=== PATIENT | female | born 1945 | race Caucasian/White ===

== ENCOUNTER 2018-03-20 10:39 | Inpatient (IN) ==
[2018-03-23 08:44] VITALS: RESP 16
[2018-03-23 13:53] VITALS: BP 109/70; PULSE 69; TEMP 98.2; O2SAT 92
== END 2018-03-23 16:25 | disposition home health service (06) ==
LOC: PHEDA 10:39 → PHED 10:39 → PH3 16:04
PROVIDERS: ADMIT Internal Medicine; ATTEND Internal Medicine

== ENCOUNTER 2018-05-18 12:51 | Observation (INO) ==
--- NOTE | 2018-05-18 13:50 | ED ---
HPI General Chief Complaint: Respiratory Symptoms Stated Complaint: physent/ medical complaint Time Seen by Provider: 05/18/18 13:16 Source: patient Mode of arrival: ambulatory Limitations: no limitations History of Present Illness 73-year-old female with known pulmonary embolisms presents to the emergency department for evaluation at the recommendation of her para professional, Dr. Crawford after performing a CT pulmonary angiogram today. Patient states that she was diagnosed with pulmonary embolisms in March of this year and has had workup to include hematology consults. Patient says 2 nights ago she coughed up blood- streaked sputum, notified her para professional who pushed her CT up to today. Patient states compliance with her Coumadin. She states that her INR was 1.9 on Monday and her medication was changed to 2 mg 4 times a week and 1 mg 3 times a week. She continues to feel shortness of breath with exertion but this is been persistent for 3 months. She denies chest pain, back pain, leg pain, abdominal pain. Says she is on oxygen at the recommendation of Dr. Dupree for an echocardiogram was performed while in the hospital last year. Says that she had "right heart strain" at that time. Patient does not currently follow a primary care physician but previously follow Dr. Darling. Complaint: shortness of breath and cough Onset (ago): month(s) Context: other (known pulmonary embolism) Severity: mild Consistency/Duration: constant Relieving factors: nothing Exacerbating factors: exertion Known history of: COPD Treatment prior to arrival: oxygen Related Data Home oxygen amount: 2 liters Home Medications Medication Instructions Recorded Confirmed allopurinol 300 mg PO DAILY 03/20/18 03/20/18 aspirin 81 mg PO DAILY 03/20/18 03/20/18 doxycycline monohydrate 4 mg/kg PO DAILY 03/20/18 03/20/18 folic acid 1 mg PO DAILY 03/20/18 03/20/18 levothyroxine 112 mcg PO DAILY 03/20/18 03/20/18 Allergies Allergy/AdvReac Type Severity Reaction Status Date / Time diatrizoate meglumine Allergy Mild Hives Verified 05/18/18 12:56 gadobenic acid Allergy Mild Hives Verified 05/18/18 12:56 gadodiamide Allergy Mild Hives Verified 05/18/18 12:56 gadoteridol Allergy Mild Hives Verified 05/18/18 12:56 iodixanol Allergy Mild Hives Verified 05/18/18 12:56 iohexol Allergy Mild Hives Verified 05/18/18 12:56 Sulfa (Sulfonamide Allergy Mild Hives Verified 05/18/18 12:56 Antibiotics) Review of Systems ROS: all other systems reviewed are negative [facility] Medical History Medical History DVT (deep venous thrombosis) (Acute) History of hysterectomy (Acute) Portal vein thrombosis (Acute) Rosacea (Acute) Spleen absent (Acute) Thyroid activity decreased (Acute) Surgical History Surgical History Hx laparoscopic cholecystectomy (Acute) Hx of splenectomy (Acute) Family History Family History Other COPD (chronic obstructive pulmonary disease) Suicide Social History Social History Substance History: No History of Abuse Second Hand Smoke Exposure: No Smoking Status: Never smoker Tobacco Type: Cigarettes How Often Do You Have a Drink Containing Alcohol: 4 or more times a week Recent Travel in [facility] within the Last 8 Weeks: No Recent Out of Country Travel within the Last 8 Weeks: No Exam Narrative Exam Narrative: GENERAL: WD, WN in NAD SKIN: Focused skin assessment warm/dry. HEAD: Atraumatic. Normocephalic. EYES: Pupils equal and round. No scleral icterus. No injection or drainage. ENT: No nasal bleeding or discharge. Mucous membranes pink and moist. NECK: Trachea midline. No JVD. CARDIOVASCULAR: Regular rate and rhythm. No murmur appreciated. RESPIRATORY: No accessory muscle use. Clear to auscultation. Breath sounds equal bilaterally. GASTROINTESTINAL: Abdomen soft, non-tender, nondistended. Hepatic and splenic margins not palpable. No CVAT MUSCULOSKELETAL: No obvious deformities. No clubbing. No cyanosis. No edema. No TTP to calves NEUROLOGICAL: Awake and alert. No obvious cranial nerve deficits. Motor grossly within normal limits. Normal speech. PSYCHIATRIC: Appropriate mood and affect; insight and judgment normal. Course Initial Documented Vital Signs Temperature 97.6 F 05/18/18 12:56 Pulse Rate 79 05/18/18 12:56 Respiratory Rate 23 05/18/18 12:56 Blood Pressure 127/69 05/18/18 12:56 Pulse Oximetry 97 05/18/18 12:56 Last Documented Vital Signs Temperature 97.6 F 05/18/18 12:56 Pulse Rate 80 05/18/18 13:00 Respiratory Rate 17 05/18/18 13:00 Blood Pressure 137/58 L 05/18/18 13:00 Pulse Oximetry 98 05/18/18 13:00 Medical Decision Making MDM Narrative Medical decision making narrative: 73-year-old female presents to the emergency department at the recommendation of her para professional, Dr. Crawford after an imaging study that was performed today. Vital signs stable. SaO2 >95% RA at rest. EKG Sinus rhythm rate [address] elevation. The imaging study was found [facility] and stated: "1. Positive for pulmonary embolism with extensive thrombus in both lower lobes and scattered thrombi in the upper lobes. 2. Mild right basilar atelectasis. 3. COPD." We will obtain labs and then call Dr. Crawford for further guidance who is on-call today. Labs are stable. INR 2.1 therapeutic. WBC stable at 13.7, previously 12.7 and 13.9 in March. I spoke with Dr. Crawford who recommended admission as he would like observation for the patient. Because her initial test was a perfusion scan, there is uncertainty if the hemoptysis is an indication for worsening PEs compared to today's CTA. Also, he said he would place the hematology consult. I spoke with Dr. Ko who accepted this patient. Medical Screen Exam Complete: Yes Emergency Medical Condition: Yes Differential Diagnosis Differential Diagnosis: Pulmonary embolisms, pulmonary infarct, hemoptysis, COPD Medical Records Medical records reviewed: Yes I reviewed the patient's medical records. Patient presented March 20, 2018 to the emergency department and was diagnosed with pulmonary embolism. She has had a consult with Dr. Crawford, with pulmonology and hematology with Dr. Ulloa. She was started on coumadin and states compliance with therapy. Last note from Dr. Ulloa was 04/12/2018 as a follow up. Advised lifelong anticoagulant therapy d/t unprovoked nature of PEs. Lab Data Result diagrams: 05/18/18 13:54 05/18/18 13:54 Lab Results 05/18/18 05/18/18 05/18/18 Range/Units 13:54 13:54 13:54 WBC 13.7 H (4.0-11.0) th/mm3 RBC 3.99 L (4.00-5.30) mil/mm3 Hgb 12.7 (11.6-15.3) gm/dL Hct 38.4 (35.0-46.0) % MCV 96.2 (80.0-100.0) fL MCH 31.7 (27.0-34.0) pg MCHC 33.0 (32.0-36.0) % RDW 17.0 (11.6-17.2) % Plt Count 969 H (150-450) th/mm3 MPV 8.8 (7.0-11.0) fL Neut % (Auto) 89.3 H (16.0-70.0) % Lymph % (Auto) 9.4 (9.0-44.0) % [place] % (Auto) 1.1 (0.0-8.0) % Eos % (Auto) 0.0 (0.0-4.0) % Baso % (Auto) 0.2 (0.0-2.0) % Neut # (Auto) 12.2 H (1.8-7.7) th/mm3 Lymph # (Auto) 1.3 (1.0-4.8) th/mm3 [place] # (Auto) 0.1 (0.0-0.9) th/mm3 Eos # (Auto) 0.0 (0.0-0.4) th/mm3 Baso # (Auto) 0.0 (0.0-0.2) th/mm3 WBC Differential . Differential Comment Auto diff final PT 21.0 H (9.8-11.6) sec INR 2.1 Ratio APTT 35.2 H (24.3-30.1) sec Sodium 141 (136-145) meq/L Potassium 3.6 (3.5-5.1) meq/L Chloride 104 (98-107) meq/L Carbon Dioxide 26.3 (21.0-32.0) meq/L Anion Gap 11 (5-15) meq/L BUN 21 H (7-18) mg/dL Creatinine 0.75 (0.50-1.00) mg/dL Estimated GFR 76 L (>89) mL/min Random Glucose 154 H (74-106) mg/dL Calcium 9.4 (8.5-10.1) mg/dL Total Bilirubin 0.3 (0.2-1.0) mg/dL AST 33 (15-37) U/L ALT 29 (10-53) U/L Alkaline Phosphatase 141 H (45-117) U/L Total Protein 7.5 (6.4-8.2) g/dL Albumin 3.3 L (3.4-5.0) g/dL Discharge Plan Discharge Disposition Patient Disposition: 30 Still Patient Discharge Condition Condition: Stable Discharge Details Diagnosis: Pulmonary embolism, Hemoptysis Physicians Team ED Provider: Ramila Nix ED Midlevel Provider: Lore Weeks Primary Care Provider: Edilberto Darling Attending Provider: Maximiliano Ko Other Providers: Mamta Ulola ; Denis Crawford Discharge Interventions Interventions: Vital Signs Last Done: 05/18/18 13:00 Status ED Status: Admitted Observation Patient
[2018-05-18 14:17] LABS: Baso % (Auto) 0.2 % (0.0-2.0); Hematocrit 38.4 % (35.0-46.0); Hemoglobin 12.7 gm/dL (11.6-15.3); Lymph # (Auto) 1.3 th/mm3 (1.0-4.8); Lymph % (Auto) 9.4 % (9.0-44.0); Mean Corpuscular Hemoglobin 31.7 pg (27.0-34.0); Mean Corpuscular Volume 96.2 fL (80.0-100.0); Mean Platelet Volume 8.8 fL (7.0-11.0); Mono # (Auto) 0.1 th/mm3 (0.0-0.9); Mono % (Auto) 1.1 % (0.0-8.0); Neut # (Auto) 12.2 th/mm3 (1.8-7.7); Neut % (Auto) 89.3 % (16.0-70.0); Platelet Count 969 th/mm3 (150-450); Red Blood Count 3.99 mil/mm3 (4.00-5.30); White Blood Count 13.7 th/mm3 (4.0-11.0)
[2018-05-18 14:27] LABS: Activated Partial Thrombo Time 35.2 sec (24.3-30.1); INR 2.1 Ratio
[2018-05-18 14:47] LABS: Alanine Aminotransferase 29 U/L (10-53); Albumin 3.3 g/dL (3.4-5.0); Anion Gap 11 meq/L (5-15); Aspartate Aminotransferase 33 U/L (15-37); Blood Urea Nitrogen 21 mg/dL (7-18); Calcium 9.4 mg/dL (8.5-10.1); Carbon Dioxide 26.3 meq/L (21.0-32.0); Chloride 104 meq/L (98-107); Glomerular Filtration Rate 76 mL/min (>89); Glucose,Random 154 mg/dL (74-106); Potassium 3.6 meq/L (3.5-5.1); Sodium 141 meq/L (136-145)
[2018-05-18 14:49] LABS: Alkaline Phosphatase 141 U/L (45-117); Total Protein 7.5 g/dL (6.4-8.2)
--- NOTE | 2018-05-18 15:05 | MB ---
cc: Ric Crawford MD DATE: 05/18/2018 HISTORY OF PRESENT ILLNESS: Ms. Rodriguez is a 72-year-old white female who I saw back in 03/2018 when she presented with chest discomfort and shortness of breath. She had a prior history of portal vein thrombosis and has been anticoagulated for a period of time, but was on no anticoagulation at the time of her presentation. Perfusion lung scan during that admission revealed pulmonary embolism on the right. She was anticoagulated and discharged on warfarin. Dr. Mamta Ulloa has seen her back in followup regarding anticoagulation and further evaluation of possible thrombophilia. She called me yesterday and had an episode of blood-streaked sputum, so I sent her today for a followup CT scan. I was called at the office and told she had a bilateral thromboembolic disease, so I sent her directly to the emergency room. I just examined her, she is awake, alert, comfortable with a sat of 97% on room air. She has had no recurrence of the blood and she is not experiencing shortness of breath or chest pain. INR today is 2.1. She tells me earlier this week it was 1.9 and she had a minor adjustment made in her warfarin dose. She is not lightheaded. She is having no chest discomfort. She is not short of breath. PAST MEDICAL HISTORY: Hypothyroidism, melanoma, previous splenectomy, cholecystectomy and hysterectomy, portal vein thrombosis as noted above. SOCIAL HISTORY: Rare alcohol use. Former smoker, but quit years ago. ALLERGIES: MULTIPLE, LISTED IN THE EMR. CURRENT MEDICATIONS: Listed in the EMR. HOME MEDICATIONS: Included thyroid replacement and folic acid. REVIEW OF SYSTEMS: No GI symptoms. No swelling in her legs. No orthopnea or PND. PHYSICAL EXAMINATION: GENERAL: Awake, alert, is in no distress, has had no recurrent hemoptysis. VITAL SIGNS: Patient is afebrile, pulse is 80, respirations are 16-18, blood pressure is 130/60, room air saturations 97%. NECK: Veins are flat, no adenopathy in the neck or supraclavicular region. CHEST: Completely clear. Regular rate and rhythm. No harsh murmur. ABDOMEN: Soft. EXTREMITIES: No peripheral edema or calf tenderness. LABORATORY DATA: Currently available INR is 2.1. Hemoglobin 12.7, white count 13,000, platelets 969,000, that had previously been noted as well. DISCUSSION: Ms. Rodriguez presents with a single episode of rather scant blood. She had had a minor cough prior to that, may simply have a mild bronchitis. With the elevation in white count I am going to continue her on amoxicillin, which I started her on yesterday and monitor her here in the hospital for at least the next 24 hours. She has a distinctly abnormal CT of the thorax, but unfortunately we do not have an old one for comparison, we only have the previous perfusion scan, which is difficult to compare head to head. I think it is a little unlikely that she has had recurrent thromboembolism in light of the stability clinically. Essentially, her only symptom was a cough with a little bit of blood-streaked sputum. I have suggested that we keep her overnight to monitor her carefully, followup her INR again tomorrow. Continue the amoxicillin. I will also ask hematology to be aware that she is in the hospital and see her with any further recommendations they would have. Further diagnostic and/or therapeutic intervention will depend on her ongoing clinical course. R. MD SUZE Garibay/osei , 02:39 PM , 02:49 PM
[2018-05-18] MEDS ORDERED: Acetaminophen 325 MG Tablet PO PRN (15:13)
[2018-05-18] MEDS ORDERED: Bisacodyl 10 MG Supp RECTAL PRN (15:13)
--- NOTE | 2018-05-18 15:21 | P.HP ---
History of Present Illness Primary Care Physician: Edilberto Darling MD Chief Complaint: Shortness of breath History of Present Illness: This is a pleasant 73 y/o Female with known pulmonary embolisms presents to the emergency department for evaluation at the recommendation of her treer, Dr. Crawford after performing a CT pulmonary angiogram today. Patient states that she was diagnosed with pulmonary embolisms in March of this year and has had workup to include hematology consults. Patient says 2 nights ago she coughed up blood-streaked sputum, notified her treer who pushed her CT up to today. Patient states compliance with her Coumadin. She states that her INR was 1.9 on Monday and her medication was changed to 2 mg 4 times a week and 1 mg 3 times a week. She continues to feel shortness of breath with exertion but this is been persistent for 3 months. She denies chest pain, back pain, leg pain, abdominal pain. Says she is on oxygen at the recommendation of Dr. Dupree for an echocardiogram was performed while in the hospital last year. Says that she had "right heart strain" at that time. Patient does not currently follow a primary care physician but previously follow Dr. Darling. Seen in Emergency room stable having echocardiogram ordered by Doctor Denis Crawford. asked for clinical nurse specialist consult. her INR 2.1 therapeutic. Review of Systems All other systems reviewed negative except as stated in HPI PMFSH - History History Provided By: Patient - Medical History Medical History: Medical History (Last Reviewed 05/18/18 @ 13:48 by Noni Velasco RN) DVT (deep venous thrombosis) History of hysterectomy Portal vein thrombosis Rosacea Spleen absent Thyroid activity decreased - Surgical History Surgical History: Surgical History (Last Reviewed 05/18/18 @ 13:48 by Noni Velasco RN) Hx laparoscopic cholecystectomy Hx of splenectomy - Family History Family History: Family History (Last Updated 03/20/18 @ 15:51 by Lidia Rivas MD) Other COPD (chronic obstructive pulmonary disease) Suicide - Tobacco History Second Hand Smoke Exposure: No Smoking Status: Never smoker Tobacco Type: Cigarettes - Alcohol History How Often Do You Have a Drink Containing Alcohol: 4 or more times a week - Substance Use History Substance History: No History of Abuse - Travel History Recent Travel in the [place] Within the Last 8 Weeks: No Recent Travel Out of the Country Within the Last 8 Weeks: No - Immunization History Tetanus Immunization: <5 Years Medications and Allergies Active Medications: Active Medications Amoxicillin (Amoxil) 500 mg PO TID [place] Allergies Allergy/AdvReac Type Severity Reaction Status Date / Time diatrizoate meglumine Allergy Mild Hives Verified 05/18/18 12:56 gadobenic acid Allergy Mild Hives Verified 05/18/18 12:56 gadodiamide Allergy Mild Hives Verified 05/18/18 12:56 gadoteridol Allergy Mild Hives Verified 05/18/18 12:56 iodixanol Allergy Mild Hives Verified 05/18/18 12:56 iohexol Allergy Mild Hives Verified 05/18/18 12:56 Sulfa (Sulfonamide Allergy Mild Hives Verified 05/18/18 12:56 Antibiotics) Home Medications Medication Instructions Recorded Confirmed Type allopurinol 300 mg PO DAILY 03/20/18 05/18/18 History doxycycline monohydrate 1 tab PO DAILY 03/20/18 05/18/18 History folic acid 1 mg PO DAILY 03/20/18 05/18/18 History levothyroxine 112 mcg PO DAILY 03/20/18 05/18/18 History amoxicillin 500 mg PO TID 05/18/18 05/18/18 History warfarin 1 mg PO 3XW 05/18/18 05/18/18 History warfarin 2 mg PO 4XW 05/18/18 05/18/18 History Exam Vital signs: Vital Signs 05/18/18 12:56 05/18/18 13:00 Temperature 97.6 F Pulse Rate 79 80 Respiratory Rate 23 17 Blood Pressure 127/69 137/58 L Pulse Oximetry 97 98 Intake & Output 05/17/18 05/18/18 05/18/18 18:59 06:59 18:59 Weight 43.998 kg Narrative: GENERAL: Well developed, cachectic patient in no acute distress. SKIN: Focused skin assessment warm/dry. HEAD: Atraumatic. Normocephalic. EYES: Pupils equal and round. No scleral icterus. No injection or drainage. ENT: No nasal bleeding or discharge. Mucous membranes pink and moist. NECK: Trachea midline. No JVD. CARDIOVASCULAR: Regular rate and rhythm. No murmur appreciated. RESPIRATORY: Decreased breath sounds, no wheezing or crackles. GASTROINTESTINAL: Abdomen soft, non-tender, nondistended. Hepatic and splenic margins not palpable. No CVAT MUSCULOSKELETAL: No obvious deformities. No clubbing. No cyanosis. No edema. No TTP to calves NEUROLOGICAL: Awake and alert. No obvious cranial nerve deficits. Motor grossly within normal limits. Normal speech. PSYCHIATRIC: Appropriate mood and affect; insight and judgment normal. Results - Labs CBC & Chem 7: 05/18/18 13:54 05/18/18 13:54 Labs: Laboratory Results - last 24 hr 05/18/18 05/18/18 05/18/18 13:54 13:54 13:54 WBC 13.7 H RBC 3.99 L Hgb 12.7 Hct 38.4 MCV 96.2 MCH 31.7 MCHC 33.0 RDW 17.0 Plt Count 969 H MPV 8.8 Neut % (Auto) 89.3 H Lymph % (Auto) 9.4 [place] % (Auto) 1.1 Eos % (Auto) 0.0 Baso % (Auto) 0.2 Neut # (Auto) 12.2 H Lymph # (Auto) 1.3 [place] # (Auto) 0.1 Eos # (Auto) 0.0 Baso # (Auto) 0.0 WBC Differential . Differential Comment Auto diff final PT 21.0 H INR 2.1 APTT 35.2 H Sodium 141 Potassium 3.6 Chloride 104 Carbon Dioxide 26.3 Anion Gap 11 BUN 21 H Creatinine 0.75 Estimated GFR 76 L Random Glucose 154 H Calcium 9.4 Total Bilirubin 0.3 AST 33 ALT 29 Alkaline Phosphatase 141 H Total Protein 7.5 Albumin 3.3 L - Imaging CTA taken today "1. Positive for pulmonary embolism with extensive thrombus in both lower lobes and scattered thrombi in the upper lobes. 2. Mild right basilar atelectasis. 3. COPD." Caprini VTE Risk Assessment Caprini VTE Risk Assessment: Moderate/High Risk (score >= 2) Caprini Risk Assessment Model: Point Value = 1 Point Value = 2 Point Value = 3 Point Value = 5 Age 41-60 Minor surgery BMI > 25 kg/m2 Swollen legs Varicose veins or History of unexplained or recurrent spontaneous Oral contraceptives or hormone replacement Sepsis (< 1 month) Serious lung disease, including pneumonia (< 1 month) Abnormal pulmonary function Acute myocardial infarction Congestive heart failure (< 1 month) History of inflammatory bowel disease Medical patient at bed rest Age 61-74 Arthroscopic surgery Major open surgery (> 45 min) Laparoscopic surgery (> 45 min) Malignancy Confined to bed (> 72 hours) Immobilizing plaster cast Central venous access Age >= 75 History of VTE Family history of VTE Factor V Leiden Prothrombin [id number] Lupus anticoagulant Anticardiolipin antibodies Elevated serum homocysteine Heparin-induced thrombocytopenia Other congenital or acquired thrombophilia Stroke (< 1 month) Elective arthroplasty Hip, pelvis, or leg fracture Acute spinal cord injury (< 1 month) Prophylaxis Regimen: Total Risk Factor Score Risk Level Prophylaxis Regimen 0-1 Low Early ambulation 2 Moderate Order ONE of the following: *Sequential Compression Device (SCD) *Heparin 5000 units SQ BID 3-4 Higher Order ONE of the following medications: *Heparin 5000 units SQ TID *Enoxaparin/Lovenox 40 mg SQ daily (WT < 150 kg, CrCl > 30 mL/min) *Enoxaparin/Lovenox 30 mg SQ daily (WT < 150 kg, CrCl > 10-29 mL/min) *Enoxaparin/Lovenox 30 mg SQ BID (WT < 150 kg, CrCl > 30 mL/min) AND/OR *Sequential Compression Device (SCD) 5 or more Highest Order ONE of the following medications: *Heparin 5000 units SQ TID (Preferred with Epidurals) *Enoxaparin/Lovenox 40 mg SQ daily (WT < 150 kg, CrCl > 30 mL/min) *Enoxaparin/Lovenox 30 mg SQ daily (WT < 150 kg, CrCl > 10-29 mL/min) *Enoxaparin/Lovenox 30 mg SQ BID (WT < 150 kg, CrCl > 30 mL/min) AND *Sequential Compression Device (SCD) Assessment and Plan - Plan 1. Acute Respiratory Failure secondary to Pulmonary emboli sent by her Primary clinical training specialist doctor Crawford after CTA taken today "1. Positive for pulmonary embolism with extensive thrombus in both lower lobes and scattered thrombi in the upper lobes. 2. Mild right basilar atelectasis. 3. COPD." Doctor Crawford recommended admission and Hematology consult, she is followed by Doctor Ulloa Hematology and as per patient very compliant with Coumadin. at this time having Echocardiogram ordered by doctor Crawford, consulted clinical nurse specialist. 2. COPD continue Bronchodilator, Mucolytic and incentive spirometry. 3. Chronic Pulmonary failure on chronic Oxygen 2 L/min. continue Oxygen as needed. 4. Hypothyroidism to continue Hormonal therapy 5. Gout by history continue Allopurinol 6. DVT by History. DVT prophylaxis on Warfarin at this time INR 2.1 therapeutic. Code Status: full code. Discussed Condition With: Patient, floor technician and ER physician Discharge Planning: once cleared by specialists.
--- NOTE | 2018-05-18 17:13 | ECHRPT ---
Indication: CP, PULM EMBOLI, PULM HYPTN CONCLUSIONS The left ventricular systolic function is normal with an estimated ejection fraction in the range of 55-60%. Normal right ventricular size and systolic function. Left to right atrial shunt, most likely a PFO, is demonstrated by color flow Doppler interrogation. Mild mitral valve regurgitation. There is mild tricuspid valve regurgitation. The estimated pulmonary arterial pressure is 48.2 mmHg. BP: / HR: Rhythm: Sinus MEASUREMENTS (Male / Female) Normal Values Technical Quality:Fair 2D ECHO LV Diastolic Diameter PLAX 4.4 cm 4.2 - 5.9 / 3.9 - 5.3 cm LV Systolic Diameter PLAX 3.1 cm IVS Diastolic Thickness 0.7 cm 0.6 - 1.0 / 0.6 - 0.9 cm LVPW Diastolic Thickness 0.7 cm 0.6 - 1.0 / 0.6 - 0.9 cm LV Relative Wall Thickness 0.3 RV Internal Dim ED PLAX 2.6 cm LVOT Diameter 1.7 cm Aortic Root Diameter 2.9 cm LA Systolic Diameter LX 3.2 cm 3.0 - 4.0 / 2.7 - 3.8 cm M-MODE AV Cusp Separation MM 1.8 cm DOPPLER AV Peak Velocity 127.0 cm/s AV Peak Gradient 6.5 mmHg AV Mean Gradient 3.0 mmHg AV Velocity Time Integral 25.9 cm LVOT Peak Velocity 111.0 cm/s LVOT Peak Gradient 4.9 mmHg LVOT Velocity Time Integral 24.6 cm AV Area Cont Eq vti 2.2 cm AV Area Cont Eq pk 2.0 cm Mitral E Point Velocity 61.7 cm/s Mitral A Point Velocity 39.3 cm/s Mitral E to A Ratio 1.6 TV Peak Velocity 305.0 cm/s TR Peak Velocity 309.0 cm/s TR Peak Gradient 38.2 mmHg Right Atrial Pressure 10.0 mmHg Pulmonary Artery Systolic Pressu 48.2 mmHg Right Ventricular Systolic Press 48.2 mmHg PV Peak Velocity 57.9 cm/s PV Peak Gradient 1.3 mmHg FINDINGS LEFT VENTRICLE Normal left ventricular size. Wall thickness is normal. The left ventricular systolic function is normal with an estimated ejection fraction in the range of 55-60%. No regional wall motion abnormalities are present. RIGHT VENTRICLE Normal right ventricular size and systolic function. LEFT ATRIUM The left atrial size is normal. RIGHT ATRIUM The right atrial size is normal. ATRIAL SEPTUM Left to right atrial shunt, most likely a PFO, is demonstrated by color flow Doppler interrogation. AORTA The aortic root and proximal ascending aorta are normal in size on limited imaging. MITRAL VALVE Structurally normal mitral valve. Mild mitral valve regurgitation. No mitral valve stenosis. AORTIC VALVE Trileaflet aortic valve. No aortic valve stenosis or regurgitation. TRICUSPID VALVE Structurally normal tricuspid valve. There is mild tricuspid valve regurgitation. The estimated pulmonary arterial pressure is 48.2 mmHg. PULMONARY VALVE The pulmonary valve is not well visualized. Trivial pulmonary valve regurgitation. VESSELS The inferior vena cava is normal in size. PERICARDIUM No pericardial effusion. Mario Alberto Dela Cruz DO (Electronically Signed) Final Date:18 May 2018 17:12
[2018-05-18] MEDS: Sod Chloride 0.9% Inj 1,000 ML IV.CONT SCH (19:48)
[2018-05-18] MEDS: guaiFENesin 600 MG ER Tablet PO SCH (20:53)
--- NOTE | 2018-05-19 03:39 | MB ---
cc: Mamta Ulloa MD DATE: 05/18/2018 CHIEF COMPLAINT: 1. Pulmonary embolism. 2. Chronic anticoagulation with warfarin. HISTORY OF PRESENT ILLNESS: Ms. Rodriguez is a 73-year-old lady with a history of unprovoked pulmonary embolism in 03/2018. Past history of unprovoked portal vein thrombosis many years ago, who was admitted to the hospital by her design and sales consultant, Dr. Crawford, for observation for venous thromboembolism and hemoptysis. Ms. Rodriguez was hospitalized in 03/2018 with progressively worsening shortness of breath and underwent a V/Q scan at that time as she is ALLERGIC TO CONTRAST DYE and was unable to receive the 13 hours worth of prep prior to receiving IV contrast. At that time, the V/Q scan showed high probability of pulmonary embolism. She was then placed on outpatient warfarin therapy, unable to pursue DOAC therapy due to prohibitive cost. She underwent hypercoagulable workup while inpatient, which was negative. At that time, she was also found to have leukocytosis and thrombocytosis. BCR-ABL and JAK2 were negative. 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 She called Dr. Crawford and told him that she had had one episode of coin-sized hemoptysis. She still continues to have shortness of breath with exertion that has been present for several months; however, she reports that this is overall improving since her hospitalization in March. She underwent a CT scan, which showed pulmonary embolism with extensive thrombus in both lower lobes and scattered thrombi in the upper lobes. ROS as above in HPI PAST MEDICAL HISTORY: 1. Venous thromboembolism with recent unprovoked PE and history of unprovoked portal vein thrombosis. 2. Hypothyroidism. 3. History of right eye melanoma. PAST SURGICAL HISTORY: 1. Splenectomy. 2. Gallbladder removal. 3. Hysterectomy. SOCIAL HISTORY: No tobacco, alcohol, or illegal drug use. FAMILY HISTORY: No family history of blood clot. HOSPITAL MEDICATIONS: 1. Albuterol. 2. Allopurinol. 3. Amoxicillin. 4. Doxycycline. 5. Folic acid. 6. Guaifenesin. 7. Lactulose. 8. Synthroid. 9. Senna. PHYSICAL EXAMINATION: GENERAL: Well-developed, thin lady in no distress, resting comfortably in bed. NECK: Supple. No palpable lymphadenopathy. CARDIOVASCULAR: Regular rate and rhythm with no murmurs. RESPIRATORY: Clear to auscultation bilaterally. ABDOMEN: Soft, nontender, nondistended. Bowel sounds present. EXTREMITIES: No edema. NEUROLOGIC: Grossly nonfocal. PSYCHIATRIC: Appropriate mood and affect. ASSESSMENT: 1. Leukocytosis and thrombocytosis. 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 BCR-ABL and JAK2 were negative. Flow cytometry revealed a couple of morphologic abnormalities including larger platelets and left shifted granulocytes. Could certainly consider bone marrow biopsy in the future to completely rule out underlying myeloproliferative neoplasm. We will discuss with the patient on an outpatient basis. 2. Venous thromboembolism with history of unprovoked portal vein thrombosis as well as now current unprovoked pulmonary embolism. She had a V/Q scan, which revealed a large mismatch on the right side back in March and this new scan with evidence of pulmonary embolism. Unfortunately, we do not have a past CT scan in place to compare to prior. Based on the patient's symptoms, she reports that her shortness of breath overall is slowly improving compared to her hospitalization in March. Her INR most recently has been hovering around 2 with 2 recent values of 1.7 and 1.9. I would advocate continuing on warfarin therapy and will adjust warfarin dose to be closer to the upper limit of normal 3 as opposed to the lower limit of normal 2. I do not consider this at this time to be a failure of warfarin therapy. Would continue on this medication. 3. Hemoptysis. She is currently being treated with amoxicillin for an underlying bronchitis and being followed closely by Dr. Crawford. She has followup scheduled in clinic next week. MD LIVIER Ross/rodolfo , 11:59 PM , 12:09 AM EVETTE
[2018-05-19] MEDS ORDERED: Levothyroxine 112 MCG Tablet PO SCH (06:00)
[2018-05-19] MEDS: Sod Chloride 0.9% Inj 1,000 ML IV.CONT SCH (07:00)
[2018-05-19 08:34] LABS: Baso % (Auto) 0.3 % (0.0-2.0); Eos % (Auto) 0.1 % (0.0-4.0); Hematocrit 35.4 % (35.0-46.0); Hemoglobin 11.3 gm/dL (11.6-15.3); Lymph # (Auto) 2.1 th/mm3 (1.0-4.8); Lymph % (Auto) 14.3 % (9.0-44.0); Mean Corpuscular HGB Conc 31.9 % (32.0-36.0); Mean Corpuscular Hemoglobin 30.8 pg (27.0-34.0); Mean Corpuscular Volume 96.5 fL (80.0-100.0); Mean Platelet Volume 8.7 fL (7.0-11.0); Mono # (Auto) 1.1 th/mm3 (0.0-0.9); Mono % (Auto) 7.6 % (0.0-8.0); Neut # (Auto) 11.6 th/mm3 (1.8-7.7); Neut % (Auto) 77.7 % (16.0-70.0); Platelet Count 829 th/mm3 (150-450); Red Blood Count 3.67 mil/mm3 (4.00-5.30); Red Cell Distribution Width 16.8 % (11.6-17.2); White Blood Count 14.9 th/mm3 (4.0-11.0)
[2018-05-19] MEDS ORDERED: Folic Acid 1 MG Tablet PO SCH (09:00)
[2018-05-19] MEDS ORDERED: Allopurinol 300 MG Tablet PO SCH (09:00)
[2018-05-19 09:12] LABS: Anion Gap 11 meq/L (5-15); Blood Urea Nitrogen 17 mg/dL (7-18); Calcium 8.6 mg/dL (8.5-10.1); Carbon Dioxide 27.3 meq/L (21.0-32.0); Chloride 109 meq/L (98-107); Glomerular Filtration Rate Greater Than 89 mL/min (>89); Glucose,Random 92 mg/dL (74-106); Potassium 3.7 meq/L (3.5-5.1); Sodium 147 meq/L (136-145)
[2018-05-19] MEDS: guaiFENesin 600 MG ER Tablet PO SCH (10:00)
[2018-05-19 12:02] VITALS: BP 138/64; PULSE 75; RESP 12; TEMP 97.9
[2018-05-19 12:16] LABS: INR 3.2 Ratio; Prothrombin Time 32.5 sec (9.8-11.6)
--- NOTE | 2018-05-19 13:18 | P.PNONC ---
Subjective Interval history: Afebrile Patient reports her breathing is somewhat improved No further hemoptysis Anxious to go home No bleeding Objective Vital Signs/Intake & Output: Vital Signs 05/18/18 16:00 05/18/18 17:01 05/18/18 20:00 Temperature 98.3 F 97.6 F Pulse Rate 64 78 71 Respiratory Rate 18 16 18 Blood Pressure 138/74 130/66 Pulse Oximetry 97 99 05/18/18 20:21 05/18/18 20:22 05/18/18 23:41 Temperature 97.7 F Pulse Rate 79 55 L Respiratory Rate 18 16 Blood Pressure 121/61 Pulse Oximetry 99 98 05/19/18 03:43 05/19/18 04:31 05/19/18 08:00 Temperature 97.6 F 97.8 F Pulse Rate 57 L 76 75 Respiratory Rate 16 20 12 Blood Pressure 125/70 135/64 Pulse Oximetry 100 96 05/19/18 08:10 05/19/18 11:59 Temperature 97.9 F Pulse Rate 65 75 Respiratory Rate 14 12 Blood Pressure 138/64 Pulse Oximetry 98 97 Intake & Output 05/18/18 05/19/18 05/19/18 18:59 06:59 18:59 Intake Total 1000 / 1000 Balance 1000 / 1000 Weight 96 lb 1.945 oz Intake: IV 1000 / 1000 NS Inj 1,000 ML @ 75 mls/hr IV. 1000 / 1000 CONT .[id number] [facility] Rx#:[id number] Other: # Voids 2 Date of Last Bowel Movement 05/17/18 Weight On Admission 96 lb 12.527 oz Result Diagrams: 05/19/18 07:45 05/19/18 07:25 Laboratory Results: Laboratory Results - last 24 hr 05/18/18 05/18/18 05/18/18 13:54 13:54 13:54 WBC 13.7 H RBC 3.99 L Hgb 12.7 Hct 38.4 MCV 96.2 MCH 31.7 MCHC 33.0 RDW 17.0 Plt Count 969 H MPV 8.8 Neut % (Auto) 89.3 H Lymph % (Auto) 9.4 [place] % (Auto) 1.1 Eos % (Auto) 0.0 Baso % (Auto) 0.2 Neut # (Auto) 12.2 H Lymph # (Auto) 1.3 [place] # (Auto) 0.1 Eos # (Auto) 0.0 Baso # (Auto) 0.0 WBC Differential . Differential Comment Auto diff final PT 21.0 H INR 2.1 APTT 35.2 H Sodium 141 Potassium 3.6 Chloride 104 Carbon Dioxide 26.3 Anion Gap 11 BUN 21 H Creatinine 0.75 Estimated GFR 76 L Random Glucose 154 H Calcium 9.4 Total Bilirubin 0.3 AST 33 ALT 29 Alkaline Phosphatase 141 H Total Protein 7.5 Albumin 3.3 L TSH Free T4 05/19/18 05/19/18 05/19/18 07:25 07:45 11:54 WBC 14.9 H RBC 3.67 L Hgb 11.3 L Hct 35.4 MCV 96.5 MCH 30.8 MCHC 31.9 L RDW 16.8 Plt Count 829 H MPV 8.7 Neut % (Auto) 77.7 H Lymph % (Auto) 14.3 [place] % (Auto) 7.6 Eos % (Auto) 0.1 Baso % (Auto) 0.3 Neut # (Auto) 11.6 H Lymph # (Auto) 2.1 [place] # (Auto) 1.1 H Eos # (Auto) 0.0 Baso # (Auto) 0.0 WBC Differential . Differential Comment Auto diff final PT 32.5 H D INR 3.2 APTT Sodium 147 H Potassium 3.7 Chloride 109 H Carbon Dioxide 27.3 Anion Gap 11 BUN 17 Creatinine 0.59 Estimated GFR Greater than 89 Random Glucose 92 Calcium 8.6 D Total Bilirubin AST ALT Alkaline Phosphatase Total Protein Albumin TSH Free T4 05/19/18 05/19/18 11:54 11:54 WBC RBC Hgb Hct MCV MCH MCHC RDW Plt Count MPV Neut % (Auto) Lymph % (Auto) [place] % (Auto) Eos % (Auto) Baso % (Auto) Neut # (Auto) Lymph # (Auto) [place] # (Auto) Eos # (Auto) Baso # (Auto) WBC Differential Differential Comment PT INR APTT Sodium Potassium Chloride Carbon Dioxide Anion Gap BUN Creatinine Estimated GFR Random Glucose Calcium Total Bilirubin AST ALT Alkaline Phosphatase Total Protein Albumin TSH 0.104 L Free T4 1.21 Medications: Active Medications Generic Name Dose Route Start Last Admin Trade Name Freq PRN Reason Stop Dose Admin Albuterol 1 ampul 05/18/18 16:00 09/01/18 08:04 Duoneb Neb (Ana) NEB 1 ampul Q4HR NEB ANA Administration Allopurinol 300 mg 05/19/18 09:00 05/19/18 10:00 Zyloprim PO 300 mg DAILY ANA Administration Amoxicillin 500 mg 05/18/18 18:00 05/19/18 10:00 Amoxil PO 500 mg TID ANA Administration Doxycycline Hyclate 100 mg 05/19/18 11:00 05/19/18 10:01 Vibratab PO 100 mg DAILY@1100 ANA Administration Folic Acid 1 mg 05/19/18 09:00 05/19/18 10:00 Folic Acid PO 1 mg DAILY ANA Administration Guaifenesin 600 mg 05/18/18 21:00 05/19/18 10:00 Mucinex Er PO 600 mg BID ANA Administration Sodium Chloride 1,000 mls @ 75 mls/hr 05/18/18 16:00 05/19/18 07:00 Ns Inj IV.CONT 75 mls/hr .[id number] ANA Administration Levothyroxine Sodium 112 mcg 05/19/18 06:00 05/19/18 06:55 Synthroid PO 112 mcg DAILY@0600 ANA Administration Objective Remarks: GENERAL: Older female sitting up in bed in no obvious distress. She is talking on phone on approach. SKIN: Warm and dry. HEAD: Normocephalic. EYES: No scleral icterus. No injection or drainage. NECK: Supple, trachea midline. No JVD or lymphadenopathy. CARDIOVASCULAR: Regular rate and rhythm without murmurs. RESPIRATORY: Breath sounds equal bilaterally. No accessory muscle use. GASTROINTESTINAL: Abdomen soft, non-tender, nondistended. EXTREMITIES: No cyanosis, or edema. MUSCULOSKELETAL: Adequate muscle tone. NEUROLOGICAL: No obvious focal deficit. Awake, alert, and oriented x3. Assessment/Plan - Plan 73-year-old female who was found to be positive for pulmonary embolism based off high probability VQ scan in March 2018. She was placed on Coumadin at that time. She was admitted with one episode of coin-sized hemoptysis. Patient had CT scan outpatient ordered by her crusher machine operator that showed persistent pulmonary emboli. It was unknown if this was worsening as she previously had VQ scan and she was directed to the emergency room. 1. Plan keep patient on the upper limit of 3 on her INR. The patient states that she took her own 2 mg tablet of Coumadin yesterday. INR today is 3.2. She was instructed by Dr. Ulloa to start new protocol of 2 mg tablet Monday and Monday and a 1 mg tablet on Monday and . I have instructed the patient to hold her Coumadin today and to take a 2 mg tablet tomorrow instead of the 1 mg. After that she can continue on her new regimen as ordered by Dr. Ulloa. She is scheduled to have labs done on Monday in the clinic to recheck. Patient is clear for discharge from hematology standpoint.
--- NOTE | 2018-05-19 13:52 | P.PNIM ---
Subjective Interval history: This is a pleasant 73 y/o Female with known pulmonary embolisms presents to the emergency department for evaluation at the recommendation of her software qa system specialist, Dr. Crawford after performing a CT pulmonary angiogram today. Patient states that she was diagnosed with pulmonary embolisms in March of this year and has had workup to include hematology consults. Patient says 2 nights ago she coughed up blood-streaked sputum, notified her software qa system specialist who pushed her CT up to today. Patient states compliance with her Coumadin. She states that her INR was 1.9 on Monday and her medication was changed to 2 mg 4 times a week and 1 mg 3 times a week. She continues to feel shortness of breath with exertion but this is been persistent for 3 months. She denies chest pain, back pain, leg pain, abdominal pain. Says she is on oxygen at the recommendation of Dr. Dupree for an echocardiogram was performed while in the hospital last year. Says that she had "right heart strain" at that time. Patient does not currently follow a primary care physician but previously follow Dr. Darling. Seen in Emergency room stable having echocardiogram ordered by Doctor Denis Crawford. asked for certified medical coding specialist consult. her INR 2.1 therapeutic. 9-1 INR IS 3.2 CAN BE DISCHARGED CLEARED BY ONCOLOGY FOR DC FOLLOW UP DR CYDNEY Ulloa to start new protocol of 2 mg tablet Monday and Monday and a 1 mg tablet on Monday and Physical Exam Vital signs: Vital Signs 05/18/18 16:00 05/18/18 17:01 05/18/18 20:00 Temperature 98.3 F 97.6 F Pulse Rate 64 78 71 Respiratory Rate 18 16 18 Blood Pressure 138/74 130/66 Pulse Oximetry 97 99 05/18/18 20:21 05/18/18 20:22 05/18/18 23:41 Temperature 97.7 F Pulse Rate 79 55 L Respiratory Rate 18 16 Blood Pressure 121/61 Pulse Oximetry 99 98 05/19/18 03:43 05/19/18 04:31 05/19/18 08:00 Temperature 97.6 F 97.8 F Pulse Rate 57 L 76 75 Respiratory Rate 16 20 12 Blood Pressure 125/70 135/64 Pulse Oximetry 100 96 05/19/18 08:10 05/19/18 11:59 Temperature 97.9 F Pulse Rate 65 75 Respiratory Rate 14 12 Blood Pressure 138/64 Pulse Oximetry 98 97 Intake & Output 05/18/18 05/19/18 05/19/18 18:59 06:59 18:59 Intake Total 1000 / 1000 Balance 1000 / 1000 Weight 43.6 kg Intake: IV 1000 / 1000 NS Inj 1,000 ML @ 75 mls/hr IV. 1000 / 1000 CONT .[id number] [facility] Rx#:[id number] Other: # Voids 2 Date of Last Bowel Movement 05/17/18 Weight On Admission 43.9 kg Narrative: GENERAL: Well developed, cachectic patient in no acute distress. SKIN: Focused skin assessment warm/dry. HEAD: Atraumatic. Normocephalic. EYES: Pupils equal and round. No scleral icterus. No injection or drainage. ENT: No nasal bleeding or discharge. Mucous membranes pink and moist. NECK: Trachea midline. No JVD. CARDIOVASCULAR: Regular rate and rhythm. No murmur appreciated. RESPIRATORY: Decreased breath sounds, no wheezing or crackles. GASTROINTESTINAL: Abdomen soft, non-tender, nondistended. Hepatic and splenic margins not palpable. No CVAT MUSCULOSKELETAL: No obvious deformities. No clubbing. No cyanosis. No edema. No TTP to calves NEUROLOGICAL: Awake and alert. No obvious cranial nerve deficits. Motor grossly within normal limits. Normal speech. PSYCHIATRIC: Appropriate mood and affect; insight and judgment normal. Results - Labs CBC & Chem 7: 05/19/18 07:45 05/19/18 07:25 Laboratory Results - last 24 hr 05/18/18 05/18/18 05/18/18 13:54 13:54 13:54 WBC 13.7 H RBC 3.99 L Hgb 12.7 Hct 38.4 MCV 96.2 MCH 31.7 MCHC 33.0 RDW 17.0 Plt Count 969 H MPV 8.8 Neut % (Auto) 89.3 H Lymph % (Auto) 9.4 [place] % (Auto) 1.1 Eos % (Auto) 0.0 Baso % (Auto) 0.2 Neut # (Auto) 12.2 H Lymph # (Auto) 1.3 [place] # (Auto) 0.1 Eos # (Auto) 0.0 Baso # (Auto) 0.0 WBC Differential . Differential Comment Auto diff final PT 21.0 H INR 2.1 APTT 35.2 H Sodium 141 Potassium 3.6 Chloride 104 Carbon Dioxide 26.3 Anion Gap 11 BUN 21 H Creatinine 0.75 Estimated GFR 76 L Random Glucose 154 H Calcium 9.4 Total Bilirubin 0.3 AST 33 ALT 29 Alkaline Phosphatase 141 H Total Protein 7.5 Albumin 3.3 L TSH Free T4 05/19/18 05/19/18 05/19/18 07:25 07:45 11:54 WBC 14.9 H RBC 3.67 L Hgb 11.3 L Hct 35.4 MCV 96.5 MCH 30.8 MCHC 31.9 L RDW 16.8 Plt Count 829 H MPV 8.7 Neut % (Auto) 77.7 H Lymph % (Auto) 14.3 [place] % (Auto) 7.6 Eos % (Auto) 0.1 Baso % (Auto) 0.3 Neut # (Auto) 11.6 H Lymph # (Auto) 2.1 [place] # (Auto) 1.1 H Eos # (Auto) 0.0 Baso # (Auto) 0.0 WBC Differential . Differential Comment Auto diff final PT 32.5 H D INR 3.2 APTT Sodium 147 H Potassium 3.7 Chloride 109 H Carbon Dioxide 27.3 Anion Gap 11 BUN 17 Creatinine 0.59 Estimated GFR Greater than 89 Random Glucose 92 Calcium 8.6 D Total Bilirubin AST ALT Alkaline Phosphatase Total Protein Albumin TSH Free T4 05/19/18 05/19/18 11:54 11:54 WBC RBC Hgb Hct MCV MCH MCHC RDW Plt Count MPV Neut % (Auto) Lymph % (Auto) [place] % (Auto) Eos % (Auto) Baso % (Auto) Neut # (Auto) Lymph # (Auto) [place] # (Auto) Eos # (Auto) Baso # (Auto) WBC Differential Differential Comment PT INR APTT Sodium Potassium Chloride Carbon Dioxide Anion Gap BUN Creatinine Estimated GFR Random Glucose Calcium Total Bilirubin AST ALT Alkaline Phosphatase Total Protein Albumin TSH 0.104 L Free T4 1.21 - Procedures NONE Assessment and Plan - Plan 1. Acute Respiratory Failure secondary to Pulmonary emboli sent by her Primary performance solutions specialist doctor Crawford after CTA taken today "1. Positive for pulmonary embolism with extensive thrombus in both lower lobes and scattered thrombi in the upper lobes. 2. Mild right basilar atelectasis. 3. COPD." Doctor Crawford recommended admission and Hematology consult, she is followed by Doctor Ulloa Hematology and as per patient very compliant with Coumadin. at this time having Echocardiogram ordered by doctor Yvette, consulted certified medical coding specialist. PATIENT CLEARED BY HEMATOLOGY/ONCOLOGY 2. COPD continue Bronchodilator, Mucolytic and incentive spirometry. 3. Chronic Pulmonary failure on chronic Oxygen 2 L/min. continue Oxygen as needed. 4. Hypothyroidism to continue Hormonal therapy 5. Gout by history continue Allopurinol 6. DVT by History. DVT prophylaxis on Warfarin at this time INR 3.[address] Ulloa to start new protocol of 2 mg tablet Monday and Monday and a 1 mg tablet on Monday and WANTS TO GO HOME Code Status: FULL CODE Discussed Condition With: RN AND PT AND CM Discharge Planning: DC TO HOME
--- NOTE | 2018-05-19 14:01 | P.DS ---
Date of admission: 05/18/18 15:15 Primary care physician: Edilberto Darling MD Attending physician on discharge: Denis Wagner Anticipated date of discharge: 05/19/18 Brief History from admission: This is a pleasant 73 y/o Female with known pulmonary embolisms presents to the emergency department for evaluation at the recommendation of her clinical appeals auditor, Dr. Crawford after performing a CT pulmonary angiogram today. Patient states that she was diagnosed with pulmonary embolisms in March of this year and has had workup to include hematology consults. Patient says 2 nights ago she coughed up blood-streaked sputum, notified her clinical appeals auditor who pushed her CT up to today. Patient states compliance with her Coumadin. She states that her INR was 1.9 on Monday and her medication was changed to 2 mg 4 times a week and 1 mg 3 times a week. She continues to feel shortness of breath with exertion but this is been persistent for 3 months. She denies chest pain, back pain, leg pain, abdominal pain. Says she is on oxygen at the recommendation of Dr. Dupree for an echocardiogram was performed while in the hospital last year. Says that she had "right heart strain" at that time. Patient does not currently follow a primary care physician but previously follow Dr. Darling. Seen in Emergency room stable having echocardiogram ordered by Doctor Denis Crawford. asked for food safety field specialist consult. her INR 2.1 therapeutic. Patient update on day of discharge: INR IS 3.2 CAN DISCHARGE ON NEW REGIMENT Dr. Ulloa to start new protocol of 2 mg tablet Monday and Monday and a 1 mg tablet on Monday and DS: Diagnosis - Discharge Diagnosis (1) Pulmonary embolism Status: Chronic (2) Gout Status: Chronic (3) Hypothyroid Status: Chronic (4) Pulmonary thromboembolism Status: Chronic (5) Rosacea Status: Chronic DS: Medications - Discharge Medications Prescriptions: guaifenesin [Mucinex] 600 mg PO BID #60 tab ipratropium-albuterol 1 amp NEB Q4HR NEB PRN #180 amp PRN Reason: Shortness Of Breath Or Wheezing DS: Summary Hospital Course: This is a pleasant 73 y/o Female with known pulmonary embolisms presents to the emergency department for evaluation at the recommendation of her clinical appeals auditor, Dr. Crawford after performing a CT pulmonary angiogram today. Patient states that she was diagnosed with pulmonary embolisms in March of this year and has had workup to include hematology consults. Patient says 2 nights ago she coughed up blood-streaked sputum, notified her clinical appeals auditor who pushed her CT up to today. Patient states compliance with her Coumadin. She states that her INR was 1.9 on Monday and her medication was changed to 2 mg 4 times a week and 1 mg 3 times a week. She continues to feel shortness of breath with exertion but this is been persistent for 3 months. She denies chest pain, back pain, leg pain, abdominal pain. Says she is on oxygen at the recommendation of Dr. Dupree for an echocardiogram was performed while in the hospital last year. Says that she had "right heart strain" at that time. Patient does not currently follow a primary care physician but previously follow Dr. Darling. Seen in Emergency room stable having echocardiogram ordered by Doctor Denis Crawford. asked for food safety field specialist consult. her INR 2.1 therapeutic. 9-1 INR IS 3.2 CAN BE DISCHARGED CLEARED BY ONCOLOGY FOR DC FOLLOW UP DR CYDNEY Ulloa to start new protocol of 2 mg tablet Monday and Monday and a 1 mg tablet on Monday and - Time Spent with Patient Total time spent providing and/or coordinating discharge services: Greater than 30 minutes - Quality: VTE Deep Vein Thrombosis/Pulmonary Embolism Present on Admission: Yes Exam Vital signs: Vital Signs 05/18/18 16:00 05/18/18 17:01 05/18/18 20:00 Temperature 98.3 F 97.6 F Pulse Rate 64 78 71 Respiratory Rate 18 16 18 Blood Pressure 138/74 130/66 Pulse Oximetry 97 99 05/18/18 20:21 05/18/18 20:22 05/18/18 23:41 Temperature 97.7 F Pulse Rate 79 55 L Respiratory Rate 18 16 Blood Pressure 121/61 Pulse Oximetry 99 98 05/19/18 03:43 05/19/18 04:31 05/19/18 08:00 Temperature 97.6 F 97.8 F Pulse Rate 57 L 76 75 Respiratory Rate 16 20 12 Blood Pressure 125/70 135/64 Pulse Oximetry 100 96 05/19/18 08:10 05/19/18 11:59 Temperature 97.9 F Pulse Rate 65 75 Respiratory Rate 14 12 Blood Pressure 138/64 Pulse Oximetry 98 97 Intake & Output 05/18/18 05/19/18 05/19/18 18:59 06:59 18:59 Intake Total 1000 / 1000 Balance 1000 / 1000 Weight 43.6 kg Intake: IV 1000 / 1000 NS Inj 1,000 ML @ 75 mls/hr IV. 1000 / 1000 CONT .[id number] SALOME Rx#:[id number] Other: # Voids 2 Date of Last Bowel Movement 05/17/18 Weight On Admission 43.9 kg Narrative: GENERAL: Well developed, cachectic patient in no acute distress. SKIN: Focused skin assessment warm/dry. HEAD: Atraumatic. Normocephalic. EYES: Pupils equal and round. No scleral icterus. No injection or drainage. ENT: No nasal bleeding or discharge. Mucous membranes pink and moist. NECK: Trachea midline. No JVD. CARDIOVASCULAR: Regular rate and rhythm. No murmur appreciated. RESPIRATORY: Decreased breath sounds, no wheezing or crackles. GASTROINTESTINAL: Abdomen soft, non-tender, nondistended. Hepatic and splenic margins not palpable. No CVAT MUSCULOSKELETAL: No obvious deformities. No clubbing. No cyanosis. No edema. No TTP to calves NEUROLOGICAL: Awake and alert. No obvious cranial nerve deficits. Motor grossly within normal limits. Normal speech. PSYCHIATRIC: Appropriate mood and affect; insight and judgment normal. Results Procedures completed during hospitalization: NONE Completed studies during hospitalization: Laboratory Results WBC 14.9 th/mm3 (4.0-11.0) H 05/19/18 07:45 RBC 3.67 mil/mm3 (4.00-5.30) L 05/19/18 07:45 Hgb 11.3 gm/dL (11.6-15.3) L 05/19/18 07:45 Hct 35.4 % (35.0-46.0) 05/19/18 07:45 MCV 96.5 fL (80.0-100.0) 05/19/18 07:45 MCH 30.8 pg (27.0-34.0) 05/19/18 07:45 MCHC 31.9 % (32.0-36.0) L 05/19/18 07:45 RDW 16.8 % (11.6-17.2) 05/19/18 07:45 Plt Count 829 th/mm3 (150-450) H 05/19/18 07:45 MPV 8.7 fL (7.0-11.0) 05/19/18 07:45 Neut % (Auto) 77.7 % (16.0-70.0) H 05/19/18 07:45 Lymph % (Auto) 14.3 % (9.0-44.0) 05/19/18 07:45 Clare % (Auto) 7.6 % (0.0-8.0) 05/19/18 07:45 Eos % (Auto) 0.1 % (0.0-4.0) 05/19/18 07:45 Baso % (Auto) 0.3 % (0.0-2.0) 05/19/18 07:45 Neut # (Auto) 11.6 th/mm3 (1.8-7.7) H 05/19/18 07:45 Lymph # (Auto) 2.1 th/mm3 (1.0-4.8) 05/19/18 07:45 Clare # (Auto) 1.1 th/mm3 (0.0-0.9) H 05/19/18 07:45 Eos # (Auto) 0.0 th/mm3 (0.0-0.4) 05/19/18 07:45 Baso # (Auto) 0.0 th/mm3 (0.0-0.2) 05/19/18 07:45 WBC Differential . 05/19/18 07:45 Differential Comment Auto diff final 05/19/18 07:45 PT 32.5 sec (9.8-11.6) H D 05/19/18 11:54 INR 3.2 Ratio 05/19/18 11:54 APTT 35.2 sec (24.3-30.1) H 05/18/18 13:54 Sodium 147 meq/L (136-145) H 05/19/18 07:25 Potassium 3.7 meq/L (3.5-5.1) 05/19/18 07:25 Chloride 109 meq/L (98-107) H 05/19/18 07:25 Carbon Dioxide 27.3 meq/L (21.0-32.0) 05/19/18 07:25 Anion Gap 11 meq/L (5-15) 05/19/18 07:25 BUN 17 mg/dL (7-18) 05/19/18 07:25 Creatinine 0.59 mg/dL (0.50-1.00) 05/19/18 07:25 Estimated GFR Greater than 89 mL/min (>89) 05/19/18 07:25 Random Glucose 92 mg/dL (74-106) 05/19/18 07:25 Calcium 8.6 mg/dL (8.5-10.1) D 05/19/18 07:25 Total Bilirubin 0.3 mg/dL (0.2-1.0) 05/18/18 13:54 AST 33 U/L (15-37) 05/18/18 13:54 ALT 29 U/L (10-53) 05/18/18 13:54 Alkaline Phosphatase 141 U/L (45-117) H 05/18/18 13:54 Total Protein 7.5 g/dL (6.4-8.2) 05/18/18 13:54 Albumin 3.3 g/dL (3.4-5.0) L 05/18/18 13:54 TSH 0.104 uIU/mL (0.358-3.740) L 05/19/18 11:54 Free T4 1.21 ng/dL (0.76-1.46) 05/19/18 11:54 Labs on day of discharge: Labs from last 24 hours 05/19/18 05/19/18 05/19/18 11:54 11:54 11:54 WBC RBC Hgb Hct MCV MCH MCHC RDW Plt Count MPV Neut % (Auto) Lymph % (Auto) Clare % (Auto) Eos % (Auto) Baso % (Auto) Neut # (Auto) Lymph # (Auto) Clare # (Auto) Eos # (Auto) Baso # (Auto) WBC Differential Differential Comment PT 32.5 H D INR 3.2 APTT Sodium Potassium Chloride Carbon Dioxide Anion Gap BUN Creatinine Estimated GFR Random Glucose Calcium Total Bilirubin AST ALT Alkaline Phosphatase Total Protein Albumin TSH 0.104 L Free T4 1.21 05/19/18 05/19/18 05/18/18 07:45 07:25 13:54 WBC 14.9 H RBC 3.67 L Hgb 11.3 L Hct 35.4 MCV 96.5 MCH 30.8 MCHC 31.9 L RDW 16.8 Plt Count 829 H MPV 8.7 Neut % (Auto) 77.7 H Lymph % (Auto) 14.3 Clare % (Auto) 7.6 Eos % (Auto) 0.1 Baso % (Auto) 0.3 Neut # (Auto) 11.6 H Lymph # (Auto) 2.1 Clare # (Auto) 1.1 H Eos # (Auto) 0.0 Baso # (Auto) 0.0 WBC Differential . Differential Comment Auto diff final PT INR APTT Sodium 147 H 141 Potassium 3.7 3.6 Chloride 109 H 104 Carbon Dioxide 27.3 26.3 Anion Gap 11 11 BUN 17 21 H Creatinine 0.59 0.75 Estimated GFR Greater than 89 76 L Random Glucose 92 154 H Calcium 8.6 D 9.4 Total Bilirubin 0.3 AST 33 ALT 29 Alkaline Phosphatase 141 H Total Protein 7.5 Albumin 3.3 L TSH Free T4 05/18/18 05/18/18 13:54 13:54 WBC 13.7 H RBC 3.99 L Hgb 12.7 Hct 38.4 MCV 96.2 MCH 31.7 MCHC 33.0 RDW 17.0 Plt Count 969 H MPV 8.8 Neut % (Auto) 89.3 H Lymph % (Auto) 9.4 Clare % (Auto) 1.1 Eos % (Auto) 0.0 Baso % (Auto) 0.2 Neut # (Auto) 12.2 H Lymph # (Auto) 1.3 Clare # (Auto) 0.1 Eos # (Auto) 0.0 Baso # (Auto) 0.0 WBC Differential . Differential Comment Auto diff final PT 21.0 H INR 2.1 APTT 35.2 H Sodium Potassium Chloride Carbon Dioxide Anion Gap BUN Creatinine Estimated GFR Random Glucose Calcium Total Bilirubin AST ALT Alkaline Phosphatase Total Protein Albumin TSH Free T4 Discharge Plan - Discharge Disposition Patient Disposition: Discharge Home - Discharge Condition Condition: Stable - Discharge Order Discharge Orders: Discharge Order (Routine); Ordered 05/19/18 Ordered By: Denis Wagner - Discharge Details Anticipated Discharge Date: 05/19/18 Discharge Comment: DC TO HOME - Physicians Team Primary Care Provider: Edilberto Darling Attending Provider: Denis Wagner Other Providers: Mamta Ulloa ; Denis Crawford MD
[2018-05-19 14:34] VITALS: O2SAT 92
--- NOTE | 2018-05-19 16:49 | ECG ---
Date Performed: 05/18/2018 Time Performed: 13:09:26 PTAGE: 73 years EKG: Sinus rhythm NORMAL ECG Since PREVIOUS TRACING , no significant change noted PREVIOUS TRACIN03/20/2018 11.42.55 DOCTOR: Sheldon Canales Interpretating Date/Time 05/19/2018 16:47:17
--- NOTE | 2018-05-21 14:21 | MD ---
cc: Ric Crawford MD,Mamta Schmidt MD DATE OF DISCHARGE: 05/19/2018 HOSPITAL COURSE: Ms. Rodriguez is a 73-year-old white female known to me from recent admission for pulmonary embolism. Dr. Ulloa and I had followed her as an outpatient and things have been stable until she called me having spit up a small amount of blood. She was on warfarin. Apparently, she was therapeutic, so Monday morning, she had a CTA. I got a call from the radiologist with multiple bilateral pulmonary emboli, but unfortunately we did not have a previous scan to compare it to. She had a ventilation perfusion study on the original admission several weeks ago. Because of the uncertainty and the hemoptysis, she was admitted to observation and she has had no recurrent hemoptysis in the last 24 hours. INR was therapeutic yesterday at 2.1. I also repeated her echocardiogram because she had pulmonary hypertension on her presentation previously, but I spoke to Dr. Dela Cruz, who read the echo and there is no evidence of pulmonary hypertension at present. Dr. Ulloa saw her in consultation as well and at this point, I agree that she probably does not have a failure of warfarin and I am very suspicious she does not have recurrent embolism at this point in light of the improvement in her pulmonary artery pressures. Symptoms have also improved. She says she has not been short of breath, had any presyncopal symptoms or chest pain. She will be discharged home today if the hospitalist agrees and we will see her back as an outpatient. She will continue to see Dr. Ulloa for anticoagulation, which at this point, we will probably be indefinite at least until we see some clearing in the CT scan. We will monitor her carefully going forward. I also placed her on Amoxil for what I thought was possibly a bronchitis. She had a cough with some congestion, may have been the cause of her minimal blood spitting. That should be continued for 5 days. Ric Crawford MD RSW/ns/melinda , 11:55 AM , 12:02 PM
== END 2018-05-19 15:06 | disposition home or self-care (01) ==
LOC: NEPE 12:51 → NEDA 12:51 → NEPGCP 16:34
PROVIDERS: ADMIT Hospitalist; ATTEND Hospitalist

== ENCOUNTER 2018-05-27 20:31 | Inpatient (IN) ==
--- NOTE | 2018-05-27 20:43 | ED ---
HPI General Chief Complaint: Shortness of Breath/Dyspnea Stated Complaint: SOB Time Seen by Provider: 05/27/18 20:33 Source: patient and EMS Mode of arrival: ambulatory Limitations: no limitations History of Present Illness 73-year-old female with history of pulmonary embolism diagnosed since March 2018 by VQ scan. Patient has severe allergy to contrast dye and requires significant pre-procedural prep for receiving IV contrast. Patient was placed on warfarin therapy. Upon embolism is felt to be related possibly to history of remote splenectomy. Patient has had extensive workup for source of coagulopathy. Patient also has portal vein thrombosis. Patient has been under the care of her field service consultant Dr. Crawford and has been evaluated by hematology. Patient's most recent hospitalization was 05/18-05/20 for hemoptysis. Patient had had an outpatient CT pulmonary angiogram which confirmed multiple PE. Patient has done well post discharge from the hospital until today she was wearing her supplemental oxygen 2 L/min nasal cannula at all times and then took off the oxygen to walk to the mailbox and back and by the time she returned to the house she was very short of breath per her nasal cannula oxygen back on but remain short of breath and call paramedics for transport. Upon their arrival patient's O2 saturation was 91-92% on 2 L they placed her on 3 L and reportedly transported her with an O2 saturation of 96-98%. Here in the emergency department her O2 saturation 82% on 2 L. Patient transitioned to nonrebreather mask and reports no shortness of breath at this time. Patient was remote smoker denies history of emphysema or COPD. Patient is followed by Dr. Crawford as her field service consultant. Patient states she has been compliant with her warfarin and during hospitalization INR was not therapeutic range at 2.1. Related Data Home Medications Medication Instructions Recorded Confirmed allopurinol 300 mg PO DAILY 03/20/18 05/27/18 doxycycline monohydrate 1 tab PO DAILY 03/20/18 05/27/18 folic acid 1 mg PO DAILY 03/20/18 05/27/18 levothyroxine 112 mcg PO DAILY 03/20/18 05/27/18 warfarin [Coumadin] 2 mg PO DAILY 05/27/18 05/27/18 Previous Rx's Medication Instructions Recorded guaifenesin [Mucinex] 600 mg PO BID #60 tab 05/19/18 Allergies Allergy/AdvReac Type Severity Reaction Status Date / Time diatrizoate meglumine Allergy Mild Hives Verified 05/18/18 12:56 gadobenic acid Allergy Mild Hives Verified 05/18/18 12:56 gadodiamide Allergy Mild Hives Verified 05/18/18 12:56 gadoteridol Allergy Mild Hives Verified 05/18/18 12:56 iodixanol Allergy Mild Hives Verified 05/18/18 12:56 iohexol Allergy Mild Hives Verified 05/18/18 12:56 Sulfa (Sulfonamide Allergy Mild Hives Verified 05/18/18 12:56 Antibiotics) Review of Systems ROS: all other systems reviewed are negative FOR[facility]LY [facility], [facility] Medical History Medical History DVT (deep venous thrombosis) (Acute) History of hysterectomy (Acute) Portal vein thrombosis (Acute) Rosacea (Acute) Spleen absent (Acute) Thyroid activity decreased (Acute) Surgical History Surgical History Hx laparoscopic cholecystectomy (Acute) Hx of splenectomy (Acute) Family History Family History Other COPD (chronic obstructive pulmonary disease) Suicide Social History Social History Substance History: No History of Abuse Second Hand Smoke Exposure: No Smoking Status: Former smoker Tobacco Type: Cigarettes How Often Do You Have a Drink Containing Alcohol: Monthly or less Recent Travel in [facility] within the Last 8 Weeks: No Recent Out of Country Travel within the Last 8 Weeks: No Exam Narrative Exam Narrative: GENERAL: Well-nourished, well-developed patient. SKIN: Focused skin assessment warm/dry. HEAD: Normocephalic. EYES: No scleral icterus. No injection or drainage. NECK: Supple, trachea midline. No JVD or lymphadenopathy. CARDIOVASCULAR: Regular rate and rhythm without murmurs, gallops, or rubs. RESPIRATORY: Breath sounds equal bilaterally. No accessory muscle use. GASTROINTESTINAL: Abdomen soft, non-tender, nondistended. MUSCULOSKELETAL: No cyanosis, or edema. BACK: Nontender without obvious deformity. No CVA tenderness. Course Initial Documented Vital Signs Temperature 97.7 F 05/27/18 20:50 Pulse Rate 87 05/27/18 20:50 Respiratory Rate 28 H 05/27/18 20:50 Blood Pressure 140/84 05/27/18 20:50 Pulse Oximetry 96 05/27/18 20:50 Last Documented Vital Signs Temperature 97.7 F 05/27/18 20:50 Pulse Rate 82 05/27/18 21:34 Respiratory Rate 20 05/27/18 21:34 Blood Pressure 140/84 05/27/18 20:50 Pulse Oximetry 96 05/27/18 21:34 Medical Decision Making [facility] Narrative Medical decision making narrative: 73-year-old female with known history of pulmonary embolism currently on anticoagulation therapy with warfarin presents to the emergency department for dyspnea at rest and on exertion after activity off of supplemental oxygen. Patient placed on supplemental oxygen and director transition continuous pulse oximetry IV access obtained specimens collections of resulting patient will have repeat imaging with VQ scan as she requires significant premedication for IV contrast due to severe allergy. EKG normal sinus rhythm rate [address] elevation injury pattern or ectopy noted; troponin I 0.8 Patient identified to have white count of 19,000 with left shift in view of history of splenectomy will cover presumptively with IV antibiotics no obvious infiltrate or pneumonia on chest x-ray VQ scan pending Patient's case discussed with hand or machine paster Dr. Roland johnson except patient ICU admission to [facility] patient will be started on heparinization due to subtherapeutic INR on Coumadin therapy patient will be given bolus of 80 U/ kg and then maintained with a heparin infusion. Medical Screen Exam Complete: Yes Emergency Medical Condition: Yes Differential Diagnosis Differential Diagnosis: PE, COPD exacerbation, CHF, Medical Records Medical records reviewed: Yes I reviewed the patient's medical records. Lab Data Result diagrams: 05/27/18 21:00 05/27/18 21:00 Lab Results 05/27/18 05/27/18 05/27/18 Range/Units 21:00 21:00 21:00 CBC w Diff Slide review pending WBC 19.2 H (4.0-11.0) th/mm3 RBC 4.32 (4.00-5.30) mil/mm3 Hgb 13.6 (11.6-15.3) gm/dL Hct 41.3 (35.0-46.0) % MCV 95.5 (80.0-100.0) fL MCH 31.3 (27.0-34.0) pg MCHC 32.8 (32.0-36.0) % RDW 16.3 (11.6-17.2) % Plt Count 742 H (150-450) th/mm3 MPV 8.4 (7.0-11.0) fL Neut % (Auto) 83.5 H (16.0-70.0) % Lymph % (Auto) 9.5 (9.0-44.0) % [place] % (Auto) 3.3 (0.0-8.0) % Eos % (Auto) 1.2 (0.0-4.0) % Baso % (Auto) 2.5 H (0.0-2.0) % Neut # (Auto) 16.1 H (1.8-7.7) th/mm3 Lymph # (Auto) 1.8 (1.0-4.8) th/mm3 [place] # (Auto) 0.6 (0.0-0.9) th/mm3 Eos # (Auto) 0.2 (0.0-0.4) th/mm3 Baso # (Auto) 0.5 H (0.0-0.2) th/mm3 WBC Differential . Diff Scan Auto diff confirmed Differential Comment . Platelet Estimate High H (Normal) Platelet Morphology Enlarged H (Normal) Ovalocytes 1+ H (None) PT 15.7 H (9.8-11.6) sec INR 1.6 Ratio APTT 28.6 (24.3-30.1) sec Puncture Site Patient Temperature O2 Saturation (90-100) % ABG pH (7.380-7.420) ABG pCO2 (38-42) mmHg ABG pO2 (61-120) mmHg ABG HCO3 (22-26) mmol/L ABG O2 Content (12.0-20.0) Vol % ABG Base Excess (-2-2) mmol/L ABG Methemoglobin (0-2) % Hemoglobin (12.0-16.0) G/DL Carboxyhemoglobin (0-4) % O2 Delivery Device Liter Flow L/M Inspired O2 % Critical Value Sodium 138 (136-145) meq/L Potassium 3.6 (3.5-5.1) meq/L Chloride 105 (98-107) meq/L Carbon Dioxide 19.1 L (21.0-32.0) meq/L Anion Gap 14 (5-15) meq/L BUN 16 (7-18) mg/dL Creatinine 0.71 (0.50-1.00) mg/dL Estimated GFR 81 L (>89) mL/min Random Glucose 124 H (74-106) mg/dL Lactic Acid (0.4-2.0) mmol/L Calcium 8.8 (8.5-10.1) mg/dL Magnesium 1.9 (1.5-2.5) mg/dL Total Bilirubin 0.3 (0.2-1.0) mg/dL AST 46 H (15-37) U/L ALT 37 (10-53) U/L Alkaline Phosphatase 135 H (45-117) U/L Total Creatine Kinase 212 H (26-192) U/L CK-MB (CK-2) 4.2 H (0.5-3.6) ng/mL CK-MB (CK-2) % 2.0 (0.0-4.0) % Troponin I 0.80 H* (0.02-0.05) ng/mL B-Natriuretic Peptide (0-100) pg/mL Total Protein 7.4 (6.4-8.2) g/dL Albumin 3.4 (3.4-5.0) g/dL 05/27/18 05/27/18 05/27/18 Range/Units 21:00 21:50 22:03 CBC w Diff WBC (4.0-11.0) th/mm3 RBC (4.00-5.30) mil/mm3 Hgb (11.6-15.3) gm/dL Hct (35.0-46.0) % MCV (80.0-100.0) fL MCH (27.0-34.0) pg MCHC (32.0-36.0) % RDW (11.6-17.2) % Plt Count (150-450) th/mm3 MPV (7.0-11.0) fL Neut % (Auto) (16.0-70.0) % Lymph % (Auto) (9.0-44.0) % [place] % (Auto) (0.0-8.0) % Eos % (Auto) (0.0-4.0) % Baso % (Auto) (0.0-2.0) % Neut # (Auto) (1.8-7.7) th/mm3 Lymph # (Auto) (1.0-4.8) th/mm3 [place] # (Auto) (0.0-0.9) th/mm3 Eos # (Auto) (0.0-0.4) th/mm3 Baso # (Auto) (0.0-0.2) th/mm3 WBC Differential Diff Scan Differential Comment Platelet Estimate (Normal) Platelet Morphology (Normal) Ovalocytes (None) PT (9.8-11.6) sec INR Ratio APTT (24.3-30.1) sec Puncture Site Right brachial Patient Temperature 98.6 O2 Saturation 92 (90-100) % ABG pH 7.47 H (7.380-7.420) ABG pCO2 30 L (38-42) mmHg ABG pO2 67 (61-120) mmHg ABG HCO3 22 (22-26) mmol/L ABG O2 Content 16.0 (12.0-20.0) Vol % ABG Base Excess -1.5 (-2-2) mmol/L ABG Methemoglobin 1.2 (0-2) % Hemoglobin 12.4 (12.0-16.0) G/DL Carboxyhemoglobin 1.2 (0-4) % O2 Delivery Device Venturi mask Liter Flow 6.00 L/M Inspired O2 40 % Critical Value No Sodium (136-145) meq/L Potassium (3.5-5.1) meq/L Chloride (98-107) meq/L Carbon Dioxide (21.0-32.0) meq/L Anion Gap (5-15) meq/L BUN (7-18) mg/dL Creatinine (0.50-1.00) mg/dL Estimated GFR (>89) mL/min Random Glucose (74-106) mg/dL Lactic Acid 2.5 H (0.4-2.0) mmol/L Calcium (8.5-10.1) mg/dL Magnesium (1.5-2.5) mg/dL Total Bilirubin (0.2-1.0) mg/dL AST (15-37) U/L ALT (10-53) U/L Alkaline Phosphatase (45-117) U/L Total Creatine Kinase (26-192) U/L CK-MB (CK-2) (0.5-3.6) ng/mL CK-MB (CK-2) % (0.0-4.0) % Troponin I (0.02-0.05) ng/mL B-Natriuretic Peptide 167 H (0-100) pg/mL Total Protein (6.4-8.2) g/dL Albumin (3.4-5.0) g/dL Imaging Data Radiologist's impression: Chest X-Ray 05/27/18 20:33 CONCLUSION: No acute cardiopulmonary disease. Discharge Plan Discharge Disposition Patient Disposition: 30 Still Patient Discharge Condition Condition: Stable Discharge Details Diagnosis: Hypoxemia, Pulmonary embolism, Elevated troponin, Leukocytosis Physicians Team ED Provider: Chacha Oakes Rxs /Orders / Referrals /Forms Prescriptions: No Action doxycycline monohydrate 50 mg Capsule 1 tab PO DAILY RF: 0 folic acid 1 mg Tablet 1 mg PO DAILY RF: 0 allopurinol 300 mg Tablet 300 mg PO DAILY RF: 0 levothyroxine 112 mcg Capsule 112 mcg PO DAILY RF: 0 guaifenesin [Mucinex] 600 mg Tablet Extended Release 12hr 600 mg PO BID Qty: 60 RF: 0 warfarin [Coumadin] 2 mg Tablet 2 mg PO DAILY RF: 0 Status ED Status: With Doctor
--- NOTE | 2018-05-27 21:10 | XR ---
EXAM DATE: 05/27/2018 9:07 PM EDT AGE/SEX: 73 years / Female INDICATIONS: Shortness of breath. CLINICAL DATA: This is the patient's initial encounter. Patient reports that signs and symptoms have been present for 1 day and indicates a pain score of 0/10. MEDICAL/SURGICAL HISTORY: None. None. COMPARISON: HPO, CHEST 1V SINGLE AP, 03/20/2018. . FINDINGS: A single AP view of the chest demonstrates the lungs to be symmetrically aerated without evidence of mass, infiltrate or effusion. The cardiomediastinal contours are unremarkable. Osseous structures a re intact. CONCLUSION: No acute cardiopulmonary disease. Electronically signed by: Gordo Reina MD 05/27/2018 9:09 PM EDT
[2018-05-27 21:13] LABS: Baso # (Auto) 0.5 th/mm3 (0.0-0.2); Baso % (Auto) 2.5 % (0.0-2.0); Eos # (Auto) 0.2 th/mm3 (0.0-0.4); Eos % (Auto) 1.2 % (0.0-4.0); Hematocrit 41.3 % (35.0-46.0); Hemoglobin 13.6 gm/dL (11.6-15.3); Lymph # (Auto) 1.8 th/mm3 (1.0-4.8); Lymph % (Auto) 9.5 % (9.0-44.0); Mean Corpuscular HGB Conc 32.8 % (32.0-36.0); Mean Corpuscular Hemoglobin 31.3 pg (27.0-34.0); Mean Corpuscular Volume 95.5 fL (80.0-100.0); Mean Platelet Volume 8.4 fL (7.0-11.0); Mono # (Auto) 0.6 th/mm3 (0.0-0.9); Mono % (Auto) 3.3 % (0.0-8.0); Neut # (Auto) 16.1 th/mm3 (1.8-7.7); Neut % (Auto) 83.5 % (16.0-70.0); Platelet Count 742 th/mm3 (150-450); Red Blood Count 4.32 mil/mm3 (4.00-5.30); Red Cell Distribution Width 16.3 % (11.6-17.2); White Blood Count 19.2 th/mm3 (4.0-11.0)
[2018-05-27 21:21] LABS: Chloride 105 meq/L (98-107); Potassium 3.6 meq/L (3.5-5.1); Sodium 138 meq/L (136-145)
[2018-05-27 21:24] LABS: Calcium 8.8 mg/dL (8.5-10.1)
[2018-05-27 21:25] LABS: Albumin 3.4 g/dL (3.4-5.0); Anion Gap 14 meq/L (5-15); Blood Urea Nitrogen 16 mg/dL (7-18); Carbon Dioxide 19.1 meq/L (21.0-32.0); Glucose,Random 124 mg/dL (74-106); INR 1.6 Ratio; Magnesium 1.9 mg/dL (1.5-2.5); Prothrombin Time 15.7 sec (9.8-11.6)
[2018-05-27 21:26] LABS: Ovalocytes 1+
[2018-05-27 21:28] LABS: Alanine Aminotransferase 37 U/L (10-53); Aspartate Aminotransferase 46 U/L (15-37); Glomerular Filtration Rate 81 mL/min (>89)
[2018-05-27 21:30] LABS: Total Protein 7.4 g/dL (6.4-8.2)
[2018-05-27 21:31] LABS: Alkaline Phosphatase 135 U/L (45-117); Creatine Kinase 212 U/L (26-192)
[2018-05-27] MEDS ORDERED: Piperacil/Tazo 4.5 GM Premix 4.5 GM/100 ML BAG IV.SIG ONE (21:33)
[2018-05-27 21:43] LABS: Creatine Kinase MB 4.2 ng/mL (0.5-3.6)
[2018-05-27 22:16] LABS: ABG Base Excess -1.5 mmol/L (-2-2); ABG PCO2 30 mmHg (38-42); ABG PO2 67 mmHg (61-120)
[2018-05-27 22:35] LABS: Activated Partial Thrombo Time 28.6 sec (24.3-30.1)
[2018-05-27] MEDS ORDERED: Heparin 10,000 UNITS/10 ML Vial (for IV use) IV.PUSH STA (22:43)
[2018-05-27] MEDS ORDERED: Bisacodyl 10 MG Supp RECTAL PRN (23:04)
[2018-05-27] MEDS ORDERED: Acetaminophen 325 MG Tablet PO PRN (23:04)
[2018-05-27 23:32] LABS: Thyroid Stimulating Hormone 0.079 uIU/mL (0.358-3.740)
[2018-05-27] MEDS ORDERED: Sodium Chlor 0.9% Inj 500 ML IV.SIG SCH (23:45)
[2018-05-28] MEDS: Heparin Drip 25,000 UNIT/250 ML BAG IV.CONT PRN (00:09)
--- NOTE | 2018-05-28 01:33 | NM ---
EXAM DATE: 05/28/2018 1:10 AM EDT AGE/SEX: 73 years / Female INDICATIONS: Short of breath. CLINICAL DATA: This is the patient's subsequent encounter. Patient reports that signs and symptoms h ave been present for 1 day and indicates a pain score of 4/10. MEDICAL/SURGICAL HISTORY: None. Splenectomy. Cholecystectomy. Hysterectomy. COMPARISON: No prior exams available for comparison. DOSE: 1.3 mCi Tc99m DTPA aerosol 8.1 mCi Tc99m MAA IV TECHNIQUE: Following five minutes of tidal breathing of DTPA aerosol, planar images of the lungs wer e performed in eight projections. The patient was then injected with MAA, and eight-view perfusion s can was performed. FINDINGS: There is a homogeneous pattern of aerosol delivery to the periphery of both lungs. No focal ventilat ory defects are seen. The perfusion lung scan demonstrates multiple perfusion defects in the lungs bilaterally, mostly tegan pheral and wedge-shaped. CONCLUSION: 1. High probability for pulmonary embolus. Electronically signed by: David Villareal MD 05/28/2018 1:31 AM EDT
[2018-05-28] MEDS ORDERED: Chlorhexidine Gluconate 2% 1 Pack (2 Cloths) TOPICAL PRN (04:00)
--- NOTE | 2018-05-28 06:14 | P.HPCC ---
History of Present Illness Service: Critical care medicine Primary Care Physician: Edilberto Darling MD Chief Complaint: shortness of breath History of Present Illness: 73yF diagnosed with PE in 03/2018 by VQ scan (severe contrast allergy), confirmed by later outpatient CTA with significant pre-medication who was recently admitted 1 week ago for hemoptysis and had her coumadin held transiently, discharged on 05/19, re-presents for acute worsening of shortness of breath. She is on 2L o2 by NC at home and stopped this acutely to go check on something outside. when she came back inside she felt significantly short of breath and presented to the ER. In the ER she was significantly hypoxemic requiring high levels of fio2. Her INR is subtherapeutic at 1.7 (recent hold due to hemoptysis last week). Repeat VQ scan is still positive. She is admitted for acute hypoxemia due to PE. This morning, on my evaluation, the patient is back to NC o2. She states her symptoms have resolved and she feels significantly improved. Denies any other new symptoms, and since her last hospitalization 1 week ago, nothing has changed with her medical history. ROS negative for CP, fever, chills, cough, sputum production, PND, orthopnea, n/v/c/ d/abd pain. SOB was not present prior to exertion yesterday. Inpatient Certification: I certify that the inpatient services were ordered in accordance with Medicare regulations governing the order. This includes certification that hospital inpatient services are reasonable and necessary and in the case of services not specified as inpatient-only under 42 CFR 419.22(n), that they are appropriately provided as inpatient services in accordance to with the 2-midnight benchmark under 43 CFR 412.3(e) Estimated Total Length of Stay (Days): 5 Plans for Post Hospital Care: Home Review of Systems All other systems reviewed negative except as stated in HPI PMFSH - History History Provided By: Patient - Medical History Medical History: Medical History (Last Reviewed 05/28/18 @ 06:06 by Angel Ware MD) DVT (deep venous thrombosis) History of hysterectomy Portal vein thrombosis Rosacea Spleen absent Thyroid activity decreased - Surgical History Surgical History: Surgical History (Last Reviewed 05/28/18 @ 06:06 by Angel Ware MD) Hx laparoscopic cholecystectomy Hx of splenectomy - Family History Family History: Family History (Last Reviewed 05/28/18 @ 06:06 by Angel Ware MD) Other COPD (chronic obstructive pulmonary disease) Suicide - Tobacco History Second Hand Smoke Exposure: No Tobacco Use In Past 30 Days: No Smoking Status: Former smoker Tobacco Type: Cigarettes - Alcohol History How Often Do You Have a Drink Containing Alcohol: Monthly or less - Substance Use History Substance History: No History of Abuse - Travel History Recent Travel in the [place] Within the Last 8 Weeks: No Recent Travel Out of the Country Within the Last 8 Weeks: No - Immunization History Tetanus Immunization: Unsure Hx Influenza Vaccine This Season: No Medications and Allergies Active Medications: Active Medications Acetaminophen (Tylenol) 650 mg PO Q6H PRN PRN Reason: PAIN 1-10 AND/OR FEVER >101F Al Hydroxide/Mg Hydroxide (Milk Of Magnesia Liq) 30 ml PO Q12H PRN PRN Reason: Mild Constipation Albuterol (Albuterol Neb (Prn)) 2.5 mg NEB Q2HR NEB PRN PRN Reason: SHORTNESS OF BREATH/WHEEZING Albuterol (Duoneb Neb (Naa)) 1 ampul NEB Q6HR NEB ANA Last Admin: 05/28/18 03:11 Dose: 1 ampul Aspirin (Aspirin Chew) 81 mg PO DAILY ANA Bisacodyl (Dulcolax Supp) 10 mg RECTAL DAILY PRN PRN Reason: SEVERE CONSITIPATION Chlorhexidine Gluconate (Chlorhexidine 2% Cloth) 3 pack TOPICAL DAILY@0400 ANA Stop: 06/02/18 03:59 Chlorhexidine Gluconate (Chlorhexidine 2% Cloth) 3 pack TOPICAL DAILY@0400 PRN PRN Reason: Extra cloth needed Stop: 06/02/18 03:59 Famotidine (Pepcid) 20 mg PO BID ANA Guaifenesin (Mucinex Er) 600 mg PO BID [facility] Heparin Sodium/Dextrose (Heparin/D5w 25,000 U/250 Ml) 25,000 unit in 250 mls @ 0 mls/hr IV.CONT TITRATE PRN; Protocol PRN Reason: Per Protocol Last Admin: 05/28/18 00:09 Dose: 800 units/hr, 8 mls/hr Sodium Chloride (Ns Inj) 500 mls @ 0 mls/hr IV.SIG BOLUS [facility] Lactulose (Lactulose Liq) 30 ml PO DAILY PRN PRN Reason: SEVERE CONSITIPATION Ondansetron HCl (Zofran Inj) 4 mg IV.PUSH Q6H PRN PRN Reason: NAUSEA OR VOMITING Senna/Docusate Sodium (Chana-Colace) 1 tab PO BID [facility] Sennosides (Senokot) 17.2 mg PO Q12H PRN PRN Reason: Moderate Constipation Sodium Chloride (Ns Flush) 2 ml IV.FLUSH BID [facility] Sodium Chloride (Ns Flush) 2 ml IV.FLUSH PRN PRN PRN Reason: FLUSH AFTER USING IV ACCESS Warfarin Sodium (Coumadin) 2 mg PO [facility] Last Admin: 05/28/18 00:10 Dose: 2 mg Allergies Allergy/AdvReac Type Severity Reaction Status Date / Time diatrizoate meglumine Allergy Mild Hives Verified 05/18/18 12:56 gadobenic acid Allergy Mild Hives Verified 05/18/18 12:56 gadodiamide Allergy Mild Hives Verified 05/18/18 12:56 gadoteridol Allergy Mild Hives Verified 05/18/18 12:56 iodixanol Allergy Mild Hives Verified 05/18/18 12:56 iohexol Allergy Mild Hives Verified 05/18/18 12:56 Sulfa (Sulfonamide Allergy Mild Hives Verified 05/18/18 12:56 Antibiotics) Home Medications Medication Instructions Recorded Confirmed Type allopurinol 300 mg PO DAILY 03/20/18 05/27/18 History doxycycline monohydrate 1 tab PO DAILY 03/20/18 05/27/18 History folic acid 1 mg PO DAILY 03/20/18 05/27/18 History levothyroxine 112 mcg PO DAILY 03/20/18 05/27/18 History warfarin [Coumadin] 2 mg PO DAILY 05/27/18 05/27/18 History Results - Labs CBC & Chem 7: 05/27/18 21:00 05/27/18 21:00 Labs: Short CBC 05/27/18 Range/Units 21:00 WBC 19.2 H (4.0-11.0) th/mm3 Hgb 13.6 (11.6-15.3) gm/dL Hct 41.3 (35.0-46.0) % Plt Count 742 H (150-450) th/mm3 [facility] 05/27/18 21:00 Sodium 138 Potassium 3.6 Chloride 105 Carbon Dioxide 19.1 L BUN 16 Creatinine 0.71 Calcium 8.8 Cardiac Enzymes 05/27/18 05/28/18 Range/Units 21:00 02:45 Total Creatine Kinase 212 H (26-192) U/L CK-MB (CK-2) 4.2 H (0.5-3.6) ng/mL Troponin I 0.80 H* 1.48 H* D (0.02-0.05) ng/mL Liver Function 05/27/18 Range/Units 21:00 Total Bilirubin 0.3 (0.2-1.0) mg/dL AST 46 H (15-37) U/L ALT 37 (10-53) U/L Alkaline Phosphatase 135 H (45-117) U/L Albumin 3.4 (3.4-5.0) g/dL - Imaging Impressions Chest X-Ray 05/27/18 20:33 CONCLUSION: No acute cardiopulmonary disease. Pulmonary Perfusion Imaging 05/27/18 20:35 CONCLUSION: 1. High probability for pulmonary embolus. Exam Vital signs: Vital Signs 05/27/18 20:50 05/27/18 21:34 05/27/18 22:43 Temperature 36.5 C Pulse Rate 87 82 82 Respiratory Rate 28 H 20 24 Blood Pressure 140/84 117/78 Pulse Oximetry 96 96 98 05/28/18 02:08 05/28/18 02:42 05/28/18 02:49 Temperature 36.6 C 37.2 C Pulse Rate 62 100 H Respiratory Rate 21 24 Blood Pressure 114/77 113/74 Pulse Oximetry 100 100 05/28/18 03:00 05/28/18 03:11 05/28/18 04:00 Temperature 36.8 C Pulse Rate 64 62 72 Respiratory Rate 24 16 24 Blood Pressure 117/72 115/71 Pulse Oximetry 100 100 05/28/18 05:00 Temperature Pulse Rate 64 Respiratory Rate 26 H Blood Pressure 115/71 Pulse Oximetry 100 Intake & Output 05/27/18 05/27/18 05/28/18 06:59 18:59 06:59 Intake Total 100 / 100 Output Total 575 / 575 Balance -475 / -475 Weight 43.8 kg Intake: Oral 100 / 100 Output: Urine 575 / 575 Other: Weight On Admission 43.8 kg Narrative: gen: elderly female, lying in bed, resting comfortably, no acute distress. heent: nc. at. perrl. mmm. neck: no jvd. trachea midline. chest: unlabored. equal chest rise. nc o2. cv: normal rate, regular rhythm. sinus. abd: soft, nontender, nondistended, no guarding. extr: no edema. distal pulses 2+. warm, well perfused. neuro: RASS 0. GCS 15. follows commands. no focal deficits. Caprini VTE Risk Assessment Caprini VTE Risk Assessment: Moderate/High Risk (score >= 2) Caprini Risk Assessment Model: Point Value = 1 Point Value = 2 Point Value = 3 Point Value = 5 Age 41-60 Minor surgery BMI > 25 kg/m2 Swollen legs Varicose veins or History of unexplained or recurrent spontaneous Oral contraceptives or hormone replacement Sepsis (< 1 month) Serious lung disease, including pneumonia (< 1 month) Abnormal pulmonary function Acute myocardial infarction Congestive heart failure (< 1 month) History of inflammatory bowel disease Medical patient at bed rest Age 61-74 Arthroscopic surgery Major open surgery (> 45 min) Laparoscopic surgery (> 45 min) Malignancy Confined to bed (> 72 hours) Immobilizing plaster cast Central venous access Age >= 75 History of VTE Family history of VTE Factor V Leiden Prothrombin [id number] Lupus anticoagulant Anticardiolipin antibodies Elevated serum homocysteine Heparin-induced thrombocytopenia Other congenital or acquired thrombophilia Stroke (< 1 month) Elective arthroplasty Hip, pelvis, or leg fracture Acute spinal cord injury (< 1 month) Prophylaxis Regimen: Total Risk Factor Score Risk Level Prophylaxis Regimen 0-1 Low Early ambulation 2 Moderate Order ONE of the following: *Sequential Compression Device (SCD) *Heparin 5000 units SQ BID 3-4 Higher Order ONE of the following medications: *Heparin 5000 units SQ TID *Enoxaparin/Lovenox 40 mg SQ daily (WT < 150 kg, CrCl > 30 mL/min) *Enoxaparin/Lovenox 30 mg SQ daily (WT < 150 kg, CrCl > 10-29 mL/min) *Enoxaparin/Lovenox 30 mg SQ BID (WT < 150 kg, CrCl > 30 mL/min) AND/OR *Sequential Compression Device (SCD) 5 or more Highest Order ONE of the following medications: *Heparin 5000 units SQ TID (Preferred with Epidurals) *Enoxaparin/Lovenox 40 mg SQ daily (WT < 150 kg, CrCl > 30 mL/min) *Enoxaparin/Lovenox 30 mg SQ daily (WT < 150 kg, CrCl > 10-29 mL/min) *Enoxaparin/Lovenox 30 mg SQ BID (WT < 150 kg, CrCl > 30 mL/min) AND *Sequential Compression Device (SCD) Assessment and Plan - Assessment and Plan Plan: Assessment: 73yF with known prior pulmonary emboli and recent subtherapeutic INR secondary to hemoptysis presents for an acute episode of dyspnea and hypoxemia. Most likely acute withdraw of oxygen therapy which led to acute rise in pulmonary vascular resistance leading to acute hypoxemia and dyspnea as described in the history. Objectively, last week on 05/18 she had no evidence of right heart strain and even had a [id number] intra-atrial shunt, suggestive of relatively low right-sided pressures. She has no EKG evidence of RV strain, and she is quite thin with very easy to visualize central neck veins which are completely flat. She has no other sequelae of RV dysfunction and no peripheral edema. She is back to baseline now from symptoms and hypoxemia standpoint. Can transfer out of ICU. Would recommend against CT pulmonary angiogram as we would expect clot burden to take longer than 1 week to resolve. Certainly she is not a candidate for lytic therapy so soon after hemoptysis episode requiring hospitalization. I would recommend keeping her inpatient until she has a therapeutic INR as she is high risk for hypoxemia and bleeding. Acute hypoxemia- resolved - back to baseline o2 - secondary to acute exertional hypoxia in the setting of oxygen therapy withdraw - counseled patient not to acutely discontinue her oxygen therapy Pulmonary Emboli - persistent - continue warfarin therapy - could be a candidate for NOAC therapy if her INR continues to be difficult to control, but if safely controlled, warfarin may be superior given recent bleeding events - daily INR - continue home warfarin therapy - continue heparin drip until INR therapeutic. Recent Hemoptysis - no bleeding here. - clinically monitor. advance diet OOB as tolerated SCDs Transfer out of ICU. consult hospitalist service to assume care. H&P: Quality - VTE Deep Vein Thrombosis/Pulmonary Embolism Present on Admission: Yes
[2018-05-28 06:34] LABS: Activated Partial Thrombo Time 66.2 sec (24.3-30.1); INR 1.7 Ratio; Prothrombin Time 17.3 sec (9.8-11.6)
[2018-05-28 07:33] LABS: Hematocrit 36.7 % (35.0-46.0); Hemoglobin 11.8 gm/dL (11.6-15.3); Mean Corpuscular HGB Conc 32.3 % (32.0-36.0); Mean Corpuscular Hemoglobin 30.9 pg (27.0-34.0); Mean Corpuscular Volume 95.8 fL (80.0-100.0); Mean Platelet Volume 8.9 fL (7.0-11.0); Platelet Count 710 th/mm3 (150-450); Red Blood Count 3.83 mil/mm3 (4.00-5.30); Red Cell Distribution Width 16.5 % (11.6-17.2); White Blood Count 16.5 th/mm3 (4.0-11.0)
[2018-05-28] MEDS: Senna/Docusate Sodium 8.6/50 MG Tablet PO SCH ×2 (11:14→20:53)
[2018-05-28] MEDS: Famotidine 20 MG Tablet PO SCH ×2 (11:15→20:53)
[2018-05-28] MEDS: guaiFENesin 600 MG ER Tablet PO SCH ×2 (11:15→20:53)
[2018-05-28] MEDS: Chlorhexidine Gluconate 2% 1 Pack (2 Cloths) TOPICAL SCH (11:15)
[2018-05-28 19:13] LABS: INR 1.9 Ratio
--- NOTE | 2018-05-28 19:49 | ECG ---
Date Performed: 05/27/2018 Time Performed: 22:04:02 PTAGE: 73 years EKG: Sinus rhythm Since previous tracing, no significant change noted NORMAL ECG PREVIOUS TRACING : 05/18/2018 13.09 DOCTOR: Roshan Galaviz Interpretating Date/Time 05/28/2018 19:48:15
--- NOTE | 2018-05-28 19:51 | ECG ---
Date Performed: 05/28/2018 Time Performed: 09:08:03 PTAGE: 73 years EKG: Sinus rhythm WITH OCCASIONAL VENTRICULAR PREMATURE COMPLEXES WITH OCCASIONAL SUPRAVENTRICULAR PREMATURE COMPLEXES Since previous tracing, no significant change noted BORDERLINE ECG PREVIOUS TRACING : 05/28/2018 04.03 DOCTOR: Roshan Galaviz Interpretating Date/Time 05/28/2018 19:49:29
--- NOTE | 2018-05-28 19:51 | ECG ---
Date Performed: 05/28/2018 Time Performed: 04:03:14 PTAGE: 73 years EKG: Sinus rhythm Since previous tracing, no significant change noted NORMAL ECG PREVIOUS TRACING : 05/27/2018 22.04 DOCTOR: Roshan Galaviz Interpretating Date/Time 05/28/2018 19:49:02
[2018-05-29 06:46] LABS: Chloride 112 meq/L (98-107); Potassium 3.9 meq/L (3.5-5.1); Sodium 148 meq/L (136-145)
[2018-05-29 06:47] LABS: Hematocrit 34.8 % (35.0-46.0); Hemoglobin 11.6 gm/dL (11.6-15.3); Mean Corpuscular HGB Conc 33.3 % (32.0-36.0); Mean Corpuscular Hemoglobin 31.3 pg (27.0-34.0); Mean Corpuscular Volume 93.9 fL (80.0-100.0); Mean Platelet Volume 9.3 fL (7.0-11.0); Red Blood Count 3.71 mil/mm3 (4.00-5.30); Red Cell Distribution Width 16.8 % (11.6-17.2)
[2018-05-29 06:54] LABS: INR 1.9 Ratio; Platelet Count 779 th/mm3 (150-450); Prothrombin Time 19.7 sec (9.8-11.6)
[2018-05-29 06:55] LABS: Calcium 8.4 mg/dL (8.5-10.1)
[2018-05-29 06:56] LABS: Anion Gap 13 meq/L (5-15); Blood Urea Nitrogen 11 mg/dL (7-18); Carbon Dioxide 23.3 meq/L (21.0-32.0); Glucose,Random 105 mg/dL (74-106); Magnesium 2.1 mg/dL (1.5-2.5)
[2018-05-29 06:59] LABS: Glomerular Filtration Rate Greater Than 89 mL/min (>89)
[2018-05-29] MEDS: Chlorhexidine Gluconate 2% 1 Pack (2 Cloths) TOPICAL SCH (08:55)
[2018-05-29] MEDS: Famotidine 20 MG Tablet PO SCH ×2 (08:56→21:28)
[2018-05-29] MEDS: guaiFENesin 600 MG ER Tablet PO SCH ×2 (08:56→21:28)
[2018-05-29] MEDS: Senna/Docusate Sodium 8.6/50 MG Tablet PO SCH ×2 (08:56→21:28)
--- NOTE | 2018-05-29 11:11 | P.PN ---
Subjective Interval history: 73-year-old female who was originally managed by critical care in the ICU due to pulmonary emboli, shortness of breath. As indicated the patient has been diagnosed with pulmonary emboli and March of this year. Patient was on Coumadin and then developed hemoptysis and subsequently was taken off Coumadin then restarted. Patient had a sudden onset of shortness of breath which was improved with O2 supplementation. Patient came to emergency department and was found to have a subtherapeutic INR. Patient was admitted to ICU for continued care and management. Currently the patient is resting comfortably on 2 L nasal cannula good O2 saturations patient denies any shortness of breath. Critical care physician recommended that patient continue on heparin IV until Coumadin is therapeutic. However during the patient's stay in the hospital she had a transient troponin elevation. Patient was asymptomatic. Denies any chest pain. Physical Exam Vital signs: Vital Signs 05/28/18 12:00 05/28/18 14:18 05/28/18 16:38 Temperature Pulse Rate 74 66 70 Respiratory Rate 43 H 20 23 Blood Pressure 125/74 Pulse Oximetry 99 97 05/28/18 18:00 05/28/18 19:00 05/28/18 19:56 Temperature Pulse Rate 70 70 66 Respiratory Rate 18 18 28 H Blood Pressure 131/75 Pulse Oximetry 100 100 100 05/28/18 20:00 05/28/18 21:00 05/28/18 21:18 Temperature 98.4 F Pulse Rate 72 66 63 Respiratory Rate 30 H 17 22 Blood Pressure 131/75 Pulse Oximetry 100 99 99 05/28/18 22:00 05/28/18 23:00 05/28/18 23:44 Temperature Pulse Rate 86 80 75 Respiratory Rate 46 H 66 H Blood Pressure Pulse Oximetry 97 97 05/28/18 23:56 05/29/18 00:00 05/29/18 01:00 Temperature 98.7 F Pulse Rate 76 66 72 Respiratory Rate 29 H 57 H 17 Blood Pressure 116/71 116/71 Pulse Oximetry 100 100 95 05/29/18 02:00 05/29/18 03:00 05/29/18 03:56 Temperature Pulse Rate 62 70 68 Respiratory Rate 17 18 17 Blood Pressure 113/77 Pulse Oximetry 96 95 96 05/29/18 04:00 05/29/18 04:23 09/11/18 05:00 Temperature 98.6 F Pulse Rate 66 82 82 Respiratory Rate 17 18 83 H Blood Pressure 113/77 Pulse Oximetry 95 100 05/29/18 06:00 05/29/18 07:00 05/29/18 07:56 Temperature Pulse Rate 82 72 86 Respiratory Rate 104 H 15 Blood Pressure 111/72 Pulse Oximetry 96 98 99 05/29/18 08:00 05/29/18 09:48 Temperature Pulse Rate 86 73 Respiratory Rate 17 16 Blood Pressure Pulse Oximetry 100 96 Intake & Output 05/28/18 05/29/18 05/29/18 18:59 06:59 18:59 Intake Total 600 / 600 Output Total 525 / 525 Balance 75 / 75 Weight 43.6 kg Intake: Oral 600 / 600 Output: Urine 525 / 525 Other: # Voids 2 Date of Last Bowel Movement 05/24/18 05/28/18 05/28/18 Narrative: GENERAL: Well-developed, frail and cachectic, in no acute distress. alert and orientated HEENT: Head is normocephalic without any lesions or masses noted. Facial features are symmetric. Eyes: Pupils equal round reactive to light. Extraocular muscles are intact. Conjunctivae were clear. Oropharyngeal: Pharynx without any erythema edema. Tongue is midline without deviation. Buccal mucosa is moist without any masses or lesions NECK: Supple without any masses. Trachea midline no deviation. No JVD, no bruits are appreciated CARDIAC: Regular rhythm, regular rate. S1/S2 are heard. No murmurs gallops or rubs. LUNGS: Clear to auscultation bilaterally. No wheeze, rhonchi or rales. No use of accessory muscles on inspiration or expiration. ABDOMEN: Soft, nontender. Nondistended. Bowel sounds heard in all 4 quadrants. No organomegaly or masses. Negative rebound, negative guarding EXTREMITIES: No edema, pulses are equal bilaterally. No cyanosis or clubbing NEUROLOGY: Mood and affect appear appropriate. Cranial nerves II through XII grossly intact. Muscle strength 5/5 in upper and lower extremities bilaterally. Deep tendon reflexes are 2+ in upper and lower extremities bilaterally. Results - Labs CBC & Chem 7: 05/29/18 06:17 05/29/18 06:17 Laboratory Results - last 24 hr 05/28/18 05/28/18 05/28/18 02:45 11:50 11:50 WBC RBC Hgb Hct MCV MCH MCHC RDW Plt Count MPV PT 19.0 H INR 1.9 APTT 54.4 H Sodium Potassium Chloride Carbon Dioxide Anion Gap BUN Creatinine Estimated GFR Random Glucose Calcium Magnesium Nasal Screen MRSA (PCR) Not detected 05/29/18 05/29/18 05/29/18 06:17 06:17 06:17 WBC RBC Hgb Hct MCV MCH MCHC RDW Plt Count MPV PT 19.7 H INR 1.9 APTT 60.5 H Sodium 148 H D Potassium 3.9 Chloride 112 H Carbon Dioxide 23.3 Anion Gap 13 BUN 11 Creatinine 0.58 Estimated GFR Greater than 89 Random Glucose 105 Calcium 8.4 L Magnesium 2.1 Nasal Screen MRSA (PCR) 05/29/18 06:17 WBC 17.0 H RBC 3.71 L Hgb 11.6 Hct 34.8 L MCV 93.9 MCH 31.3 MCHC 33.3 RDW 16.8 Plt Count 779 H MPV 9.3 PT INR APTT Sodium Potassium Chloride Carbon Dioxide Anion Gap BUN Creatinine Estimated GFR Random Glucose Calcium Magnesium Nasal Screen MRSA (PCR) Microbiology 05/27/18 21:40 Blood - Peripheral Aerobic Blood Culture - Preliminary No growth in 1 day 05/27/18 21:40 Blood - Peripheral Anaerobic Blood Culture - Preliminary No growth in 1 day 05/27/18 21:50 Blood - Peripheral Aerobic Blood Culture - Preliminary No growth in 1 day 05/27/18 21:50 Blood - Peripheral Anaerobic Blood Culture - Preliminary No growth in 1 day Assessment and Plan - Plan Acute on chronic hypoxic respiratory failure, resolved -Secondary to acute exertional hypoxia in the setting of oxygen therapy withdrawal -Continue to supplement oxygen to maintain O2 sats greater than 92% -Patient was counseled to maintain on O2 therapy Pulmonary emboli -Continue warfarin therapy until INR 2.0-3.0 -Patient on heparin IV at this time, discontinue once INR is therapeutic Elevated troponin -Patient did present with acute dyspnea on exertion, shortness of breath which could be a component of acute coronary syndrome -Patient is on heparin IV at this time -Consult cardiology for further recommendations -Obtain echocardiogram to evaluate for right heart failure secondary to PE -Continue aspirin 81 mg daily -Obtain lipid panel -Start statin -Start low-dose beta-matt DVT prevention -Patient is on heparin IV
--- NOTE | 2018-05-29 13:49 | ECG ---
Date Performed: 05/28/2018 Time Performed: 17:37:38 PTAGE: 73 years EKG: Sinus rhythm WITH FREQUENT SUPRAVENTRICULAR PREMATURE COMPLEXES ABNORMAL RHYTHM ECG Compared to PREVIOUS TRACING recurrent PACs are noted, otherwise largely unchanged PREVIOUS TRACIN05/28/2018 12.01 DOCTOR: Joseph Jacinto Interpretating Date/Time 05/29/2018 13:48:01
--- NOTE | 2018-05-29 13:49 | ECG ---
Date Performed: 05/28/2018 Time Performed: 12:01:48 PTAGE: 73 years EKG: Sinus rhythm NORMAL ECG Normalization compared to prior tracing PREVIOUS TRACING : 05/28/2018 09.08 DOCTOR: Joseph Jacinto Interpretating Date/Time 05/29/2018 13:47:37
--- NOTE | 2018-05-29 15:15 | P.CONCA ---
History of Present Illness Service: [facility] cardiology Consult date: 05/29/18 Requesting Physician: Angel Ware Reason for Consult: positive troponin Primary Care Provider: Edilberto Darling MD Chief Complaint: shortness of breath History of Present Illness: 73y lady with remote history of portal vein thrombosis, recently diagnosed with PE in 03/2018 by VQ scan (severe contrast allergy), confirmed by later outpatient CTA, admitted recently for hemoptysis and had her coumadin held transiently and subsequently discharged on 05/19. She returned [place] [facility] [place] with acute worsening of shortness of breath. She is on 2L o2 by NC at home and was ambulating without the oxygen to go check on something outdoors and later felt significantly short of breath and presented to the ER. In the ER she was significantly hypoxemic requiring high levels of fio2. Her INR was subtherapeutic at 1. (recent hold due to hemoptysis last week). Repeat VQ scan agian is still positive. She was admitted and started on a heparin gtt as bridge for coumadin for acute hypoxemia due to PE. She states her presenting dyspnea has improved. Denies any other new symptoms, and since her last hospitalization 1 week ago. She has not had recurrent hemoptysis since last episode which she states was 1 month ago, however notes state episode was about 1-2 weeks ago. Troponin was elevated at 0.8, 0.92 with BNP 167. ECG is NSR with no ischemic changes. Tele reveals multiple brief episodes of PAF with RVR, HR up to 130s. She is currently on metoprolol tartrate 12.5mg bid. INR today was 1.9. She states that she cannot afford NOACs and has had trouble regulating her INR as outpatient. ROS negative for CP, fever, chills, cough, sputum production, PND, orthopnea, n/ v/c/d/abd pain. SOB was not present prior to exertion yesterday. Review of Systems All other systems reviewed negative except as stated in HPI PMFSH - History History Provided By: Patient - Medical History Medical History: Medical History (Last Reviewed 05/28/18 @ 06:06 by Angel Ware MD) DVT (deep venous thrombosis) History of hysterectomy Portal vein thrombosis Rosacea Spleen absent Thyroid activity decreased - Surgical History Surgical History: Surgical History (Last Reviewed 05/28/18 @ 06:06 by Angel Ware MD) Hx laparoscopic cholecystectomy Hx of splenectomy - Family History Family History: Family History (Last Reviewed 05/28/18 @ 06:06 by Angel Ware MD) Other COPD (chronic obstructive pulmonary disease) Suicide - Tobacco History Second Hand Smoke Exposure: No Tobacco Use In Past 30 Days: No Smoking Status: Former smoker Tobacco Type: Cigarettes - Alcohol History How Often Do You Have a Drink Containing Alcohol: Monthly or less - Substance Use History Substance History: No History of Abuse - Travel History Recent Travel in the [place] Within the Last 8 Weeks: No Recent Travel Out of the Country Within the Last 8 Weeks: No - Immunization History Tetanus Immunization: Unsure Hx Influenza Vaccine This Season: No Medications and Allergies Active Medications: Active Medications Acetaminophen (Tylenol) 650 mg PO Q6H PRN PRN Reason: PAIN 1-10 AND/OR FEVER >101F Al Hydroxide/Mg Hydroxide (Milk Of Magntutu Liq) 30 ml PO Q12H PRN PRN Reason: Mild Constipation Albuterol (Albuterol Neb (Prn)) 2.5 mg NEB Q2HR NEB PRN PRN Reason: SHORTNESS OF BREATH/WHEEZING Albuterol (Duoneb Neb (Ana)) 1 ampul NEB Q6HR NEB [facility] Last Admin: 05/29/18 09:45 Dose: 1 ampul Aspirin (Aspirin Chew) 81 mg PO DAILY [facility] Last Admin: 05/29/18 08:56 Dose: 81 mg Atorvastatin Calcium (Lipitor) 10 mg PO HS [facility] Bisacodyl (Dulcolax Supp) 10 mg RECTAL DAILY PRN PRN Reason: SEVERE CONSITIPATION Chlorhexidine Gluconate (Chlorhexidine 2% Cloth) 3 pack TOPICAL DAILY@0400 [facility] Stop: 06/02/18 03:59 Last Admin: 05/29/18 08:55 Dose: 3 pack Chlorhexidine Gluconate (Chlorhexidine 2% Cloth) 3 pack TOPICAL DAILY@0400 PRN PRN Reason: Extra cloth needed Stop: 06/02/18 03:59 Famotidine (Pepcid) 20 mg PO BID [facility] Last Admin: 05/29/18 08:56 Dose: 20 mg Guaifenesin (Mucinex Er) 600 mg PO BID [facility] Last Admin: 05/29/18 08:56 Dose: 600 mg Heparin Sodium/Dextrose (Heparin/D5w 25,000 U/250 Ml) 25,000 unit in 250 mls @ 0 mls/hr IV.CONT TITRATE PRN; Protocol PRN Reason: Per Protocol Last Titration: 05/29/18 09:31 Dose: 800 units/hr, 8 mls/hr Lactulose (Lactulose Liq) 30 ml PO DAILY PRN PRN Reason: SEVERE CONSITIPATION Metoprolol Tartrate (Lopressor) 12.5 mg PO BID [facility] Miscellaneous (Pill Splitter) 1 each OTHER UNSCH PRN PRN Reason: SEE LABEL COMMENTS Ondansetron HCl (Zofran Inj) 4 mg IV.PUSH Q6H PRN PRN Reason: NAUSEA OR VOMITING Senna/Docusate Sodium (Chana-Colace) 1 tab PO BID [facility] Last Admin: 05/29/18 08:56 Dose: 1 tab Sennosides (Senokot) 17.2 mg PO Q12H PRN PRN Reason: Moderate Constipation Sodium Chloride (Ns Flush) 2 ml IV.FLUSH BID [facility] Last Admin: 05/29/18 08:56 Dose: Not Given Sodium Chloride (Ns Flush) 2 ml IV.FLUSH PRN PRN PRN Reason: FLUSH AFTER USING IV ACCESS Warfarin Sodium (Coumadin) 2 mg PO HS [facility] Last Admin: 05/28/18 20:53 Dose: 2 mg Allergies Allergy/AdvReac Type Severity Reaction Status Date / Time diatrizoate meglumine Allergy Mild Hives Verified 05/18/18 12:56 gadobenic acid Allergy Mild Hives Verified 05/18/18 12:56 gadodiamide Allergy Mild Hives Verified 05/18/18 12:56 gadoteridol Allergy Mild Hives Verified 05/18/18 12:56 iodixanol Allergy Mild Hives Verified 05/18/18 12:56 iohexol Allergy Mild Hives Verified 05/18/18 12:56 Sulfa (Sulfonamide Allergy Mild Hives Verified 05/18/18 12:56 Antibiotics) Home Medications Medication Instructions Recorded Confirmed Type allopurinol 300 mg PO DAILY 03/20/18 05/27/18 History doxycycline monohydrate 1 tab PO DAILY 03/20/18 05/27/18 History folic acid 1 mg PO DAILY 03/20/18 05/27/18 History levothyroxine 112 mcg PO DAILY 07/03/18 09/09/18 History warfarin [Coumadin] 2 mg PO DAILY 05/27/18 05/27/18 History Exam Vital signs: Vital Signs 05/28/18 16:38 05/28/18 18:00 05/28/18 19:00 Temperature Pulse Rate 70 70 70 Respiratory Rate 23 18 18 Blood Pressure 125/74 Pulse Oximetry 100 100 05/28/18 19:56 05/28/18 20:00 05/28/18 21:00 Temperature 98.4 F Pulse Rate 66 72 66 Respiratory Rate 28 H 30 H 17 Blood Pressure 131/75 131/75 Pulse Oximetry 100 100 99 05/28/18 21:18 05/28/18 22:00 05/28/18 23:00 Temperature Pulse Rate 63 86 80 Respiratory Rate 22 46 H 66 H Blood Pressure Pulse Oximetry 99 97 97 05/28/18 23:44 05/28/18 23:56 05/29/18 00:00 Temperature 98.7 F Pulse Rate 75 76 66 Respiratory Rate 29 H 57 H Blood Pressure 116/71 116/71 Pulse Oximetry 100 100 05/29/18 01:00 05/29/18 02:00 05/29/18 03:00 Temperature Pulse Rate 72 62 70 Respiratory Rate 17 17 18 Blood Pressure Pulse Oximetry 95 96 95 05/29/18 03:56 05/29/18 04:00 05/29/18 04:23 Temperature 98.6 F Pulse Rate 68 66 82 Respiratory Rate 17 17 18 Blood Pressure 113/77 113/77 Pulse Oximetry 96 95 05/29/18 05:00 05/29/18 06:00 05/29/18 07:00 Temperature Pulse Rate 82 82 72 Respiratory Rate 83 H 104 H Blood Pressure Pulse Oximetry 100 96 98 05/29/18 07:56 05/29/18 08:00 05/29/18 09:00 Temperature Pulse Rate 86 86 82 Respiratory Rate 15 17 24 Blood Pressure 111/72 Pulse Oximetry 99 100 97 05/29/18 09:48 05/29/18 10:00 05/29/18 11:00 Temperature 98.1 F Pulse Rate 73 78 82 Respiratory Rate 16 15 28 H Blood Pressure Pulse Oximetry 96 97 05/29/18 11:56 05/29/18 12:00 05/29/18 13:00 Temperature Pulse Rate 78 76 78 Respiratory Rate 17 17 23 Blood Pressure 115/68 Pulse Oximetry 98 99 96 05/29/18 14:00 Temperature Pulse Rate 76 Respiratory Rate 27 H Blood Pressure Pulse Oximetry Intake & Output 05/28/18 05/29/18 05/29/18 18:59 06:59 18:59 Intake Total 600 / 600 Output Total 525 / 525 Balance 75 / 75 Weight 43.6 kg Intake: Oral 600 / 600 Output: Urine 525 / 525 Other: # Voids 2 Date of Last Bowel Movement 05/24/18 05/28/18 05/28/18 Narrative: GENERAL: Very thin and chronically ill appearing. Comfortable, speaking full sentences. SKIN: Warm and dry. HEAD: Atraumatic. Normocephalic. EYES: Pupils equal and round. No scleral icterus. No injection or drainage. NECK: Trachea midline. No elevated JVD. CARDIOVASCULAR: Regular rate and rhythm. No lower extremity edema. RESPIRATORY: No accessory muscle use. Clear to auscultation. Breath sounds equal bilaterally. GASTROINTESTINAL: Abdomen soft, non-tender, nondistended. MUSCULOSKELETAL: Extremities without clubbing, cyanosis, or edema. No obvious deformities. NEUROLOGICAL: Awake and alert. No obvious cranial nerve deficits. Normal speech. PSYCHIATRIC: Appropriate mood and affect; insight and judgment normal. Results 05/29/18 06:17 05/29/18 06:17 Coagulation 05/28/18 05/29/18 05/29/18 Range/Units 11:50 06:17 06:17 PT 19.0 H 19.7 H (9.8-11.6) sec APTT 60.5 H (24.3-30.1) sec CBC 05/29/18 Range/Units 06:17 WBC 17.0 H (4.0-11.0) th/mm3 RBC 3.71 L (4.00-5.30) mil/mm3 Hgb 11.6 (11.6-15.3) gm/dL Hct 34.8 L (35.0-46.0) % Plt Count 779 H (150-450) th/mm3 Comprehensive Metabolic Panel 05/29/18 Range/Units 06:17 Sodium 148 H D (136-145) meq/L Potassium 3.9 (3.5-5.1) meq/L Chloride 112 H (98-107) meq/L Carbon Dioxide 23.3 (21.0-32.0) meq/L BUN 11 (7-18) mg/dL Creatinine 0.58 (0.50-1.00) mg/dL Calcium 8.4 L (8.5-10.1) mg/dL Intake and Output 05/28/18 05/29/18 05/29/18 22:59 06:59 14:59 Intake Total 600 / 600 Output Total 525 / 525 Balance 75 / 75 Intake: Oral 600 / 600 Output: Urine 525 / 525 Other: # Voids 2 Date of Last Bowel Movement 05/28/18 05/28/18 05/28/18 Weight 43.6 kg Assessment and Plan - Plan Hypoxemic respiratory failure, secondary to PE, currently with stable oxygen saturation on supplemental O2 Acute on chronic PE PAF with controlled ventricular rate Iatrogenic coagulopathy with subtherapeutic INR for treatment on PE, on heparin gtt bridge currently Elevated troponin and mildly elevated BNP, likely due to heart strain from PE. Patient denies angina. Recent hemoptysis Leukocytosis & thrombocytosis, suspect secondary to PE hx of CVA Recommendations: - continue heparin gtt bridge until INR 2-3 with coumadin - increase metoprolol tartrate to 25mg po bid - coumadin therapy, goal INR 2-3, lifelong for PE and PAF with elevated CHADS2- VASc score - elevated troponins are relatively flat and suspect due to acute PE. No further troponin measurements needed. Even if her troponin raises further, she is not a good candidate for coronary intervention due to recent hemoptysis. will sign off for now. call with further questions.
[2018-05-29] MEDS: Metoprolol Tartrate 25 MG Tablet PO SCH ×2 (16:16→21:28)
[2018-05-30] MEDS: Chlorhexidine Gluconate 2% 1 Pack (2 Cloths) TOPICAL SCH (03:07)
[2018-05-30 06:46] LABS: INR 1.9 Ratio; Prothrombin Time 18.9 sec (9.8-11.6)
[2018-05-30 06:58] LABS: Chloride 106 meq/L (98-107); Sodium 140 meq/L (136-145)
[2018-05-30 07:02] LABS: Baso # (Auto) 0.2 th/mm3 (0.0-0.2); Baso % (Auto) 0.9 % (0.0-2.0); Eos % (Auto) 5.2 % (0.0-4.0); Hematocrit 35.5 % (35.0-46.0); Hemoglobin 11.9 gm/dL (11.6-15.3); Lymph # (Auto) 3.3 th/mm3 (1.0-4.8); Lymph % (Auto) 17.6 % (9.0-44.0); Mean Corpuscular HGB Conc 33.6 % (32.0-36.0); Mean Corpuscular Hemoglobin 31.4 pg (27.0-34.0); Mean Corpuscular Volume 93.5 fL (80.0-100.0); Mean Platelet Volume 9.6 fL (7.0-11.0); Mono # (Auto) 1.4 th/mm3 (0.0-0.9); Mono % (Auto) 7.4 % (0.0-8.0); Neut % (Auto) 68.9 % (16.0-70.0); Platelet Count 805 th/mm3 (150-450); Red Cell Distribution Width 16.6 % (11.6-17.2); White Blood Count 18.9 th/mm3 (4.0-11.0)
[2018-05-30 07:08] LABS: Anion Gap 9 meq/L (5-15); Blood Urea Nitrogen 14 mg/dL (7-18); Carbon Dioxide 25.5 meq/L (21.0-32.0); Glucose,Random 94 mg/dL (74-106); Magnesium 2.3 mg/dL (1.5-2.5)
[2018-05-30 07:11] LABS: Glomerular Filtration Rate Greater Than 89 mL/min (>89)
[2018-05-30] MEDS: Senna/Docusate Sodium 8.6/50 MG Tablet PO SCH (09:25)
[2018-05-30] MEDS: Famotidine 20 MG Tablet PO SCH (09:25)
[2018-05-30] MEDS: Metoprolol Tartrate 25 MG Tablet PO SCH (09:26)
[2018-05-30] MEDS: guaiFENesin 600 MG ER Tablet PO SCH (09:26)
[2018-05-30] MEDS: Heparin Drip 25,000 UNIT/250 ML BAG IV.CONT PRN (09:28)
[2018-05-30 11:23] LABS: Cholesterol 147 mg/dL (120-200); Triglycerides 69 mg/dL (42-150)
[2018-05-30 11:24] LABS: Chol/HDL Ratio 2.27 Ratio; HDL Cholesterol 64.7 mg/dL (40.0-60.0); LDL Cholesterol,Calculated 69 mg/dL (0-99)
[2018-05-30 16:30] LABS: Prothrombin Time 20.7 sec (9.8-11.6)
--- NOTE | 2018-05-30 16:41 | P.DS ---
Date of admission: 05/27/18 22:48 Primary care physician: Edilberto Darling MD Attending physician on discharge: Gordo Baires Anticipated date of discharge: 05/30/18 Brief History from admission: 73yF diagnosed with PE in 03/2018 by VQ scan (severe contrast allergy), confirmed by later outpatient CTA with significant pre-medication who was recently admitted 1 week ago for hemoptysis and had her coumadin held transiently, discharged on 05/19, re-presents for acute worsening of shortness of breath. She is on 2L o2 by NC at home and stopped this acutely to go check on something outside. when she came back inside she felt significantly short of breath and presented to the ER. In the ER she was significantly hypoxemic requiring high levels of fio2. Her INR is subtherapeutic at 1.7 (recent hold due to hemoptysis last week). Repeat VQ scan is still positive. She is admitted for acute hypoxemia due to PE. This morning, on my evaluation, the patient is back to NC o2. She states her symptoms have resolved and she feels significantly improved. Denies any other new symptoms, and since her last hospitalization 1 week ago, nothing has changed with her medical history. ROS negative for CP, fever, chills, cough, sputum production, PND, orthopnea, n/v/c/ d/abd pain. SOB was not present prior to exertion yesterday. DS: Diagnosis - Discharge Diagnosis (1) Hypoxemia Status: Acute (2) Pulmonary embolism Status: Chronic (3) Elevated troponin Status: Acute DS: Medications - Discharge Medications Prescriptions: warfarin [Coumadin] 3 mg PO HS #45 tab DS: Summary Hospital Course: 73-year-old female with known history of chronic hypoxic respiratory failure oxygen dependent, chronic obstructive pulmonary disease, pulmonary emboli, history of hemoptysis to presented to the hospital because of acute onset of shortness of breath and dyspnea. Patient had evaluation done emergency department and patient presented with initially with hypoxia. It was indicated that the patient had discontinued using oxygen at home on her own and he started developing shortness of breath and dyspnea. Patient does have history of pulmonary emboli in which she is on Coumadin which was subtherapeutic on presentation as well. Due to the patient's pulmonary emboli, shortness of breath, hypoxia patient was admitted to the critical care team initially. Patient was started on heparin IV. Cardiac enzymes were trended with acute elevation. EKGs did not show any changes. Patient likely had demand ischemia from the pulmonary emboli. Patient was stabilized and transferred to medical service. Once patient was placed on oxygen and there is no other signs of any shortness of breath. Patient had great oxygenation. Patient remained on heparin IV and Coumadin was adjusted until INR was 2.0-3.0. [facility] was consulted who indicated that elevated troponins were flat and suspect due to acute PE. There is no further troponins measurements were needed. Patient was not a good candidate for coronary intervention due to recent hemoptysis. Patient clinically stable this time. INR 2.0. Patient will be discharged home accordingly. Patient will require outpatient follow-up with pet house sitter. - Time Spent with Patient Total time spent providing and/or coordinating discharge services: Greater than 30 minutes - Quality: VTE Deep Vein Thrombosis/Pulmonary Embolism Present on Admission: Yes Exam Vital signs: Vital Signs 05/29/18 20:00 05/29/18 21:15 05/29/18 22:00 Temperature 98.8 F Pulse Rate 80 73 67 Respiratory Rate 19 22 Blood Pressure 130/72 Pulse Oximetry 100 97 05/30/18 00:00 05/30/18 04:00 05/30/18 08:00 Temperature 98.1 F 97.4 F L 97.3 F L Pulse Rate 63 59 L 68 Respiratory Rate 20 20 18 Blood Pressure 120/62 105/59 L 99/58 L Pulse Oximetry 100 99 100 05/30/18 10:00 05/30/18 10:19 05/30/18 12:00 Temperature 99.4 F Pulse Rate 75 66 75 Respiratory Rate 16 20 Blood Pressure 105/63 Pulse Oximetry 99 98 05/30/18 15:59 Temperature Pulse Rate 66 Respiratory Rate 18 Blood Pressure Pulse Oximetry Intake & Output 05/29/18 05/30/18 05/30/18 18:59 06:59 18:59 Intake Total 250 / 250 240 / 240 Output Total 650 / 650 Balance -400 / -400 240 / 240 Weight 43.4 kg Intake: IV 250 / 250 Heparin/D5W 25,000 U/250 mL 25, 250 / 250 000 unit In 250 ml @ Per Protocol IV.CONT TITRATE PRN Rx #:[id number] Oral 240 / 240 Output: Urine 650 / 650 Other: # Voids 1 Date of Last Bowel Movement 05/28/18 05/28/18 05/28/18 Narrative: GENERAL: Well-developed, frail and cachectic, in no acute distress. alert and orientated HEENT: Head is normocephalic without any lesions or masses noted. Facial features are symmetric. Eyes:Extraocular muscles are intact. Conjunctivae were clear. NECK: Supple without any masses. Trachea midline no deviation. No JVD, CARDIAC: Regular rhythm, regular rate. S1/S2 are heard. No murmurs gallops or rubs. LUNGS: Clear to auscultation bilaterally. No wheeze, rhonchi or rales. No use of accessory muscles on inspiration or expiration. ABDOMEN: Soft, nontender. Nondistended. Bowel sounds heard in all 4 quadrants. No organomegaly or masses. Negative rebound, negative guarding EXTREMITIES: No edema, pulses are equal bilaterally. No cyanosis or clubbing NEUROLOGY: Mood and affect appear appropriate. moving all remedies, speech is clear Results Procedures completed during hospitalization: none Labs on day of discharge: Labs from last 24 hours 05/30/18 05/30/18 05/30/18 16:10 06:13 06:13 CBC w Diff Slide review pending WBC 18.9 H RBC 3.80 L Hgb 11.9 Hct 35.5 MCV 93.5 MCH 31.4 MCHC 33.6 RDW 16.6 Plt Count 805 H MPV 9.6 Neut % (Auto) 68.9 Lymph % (Auto) 17.6 [place]berry % (Auto) 7.4 Eos % (Auto) 5.2 H Baso % (Auto) 0.9 Neut # (Auto) 13.0 H Lymph # (Auto) 3.3 [place]berry # (Auto) 1.4 H Eos # (Auto) 1.0 H Baso # (Auto) 0.2 WBC Differential . Diff Scan Auto diff confirmed Differential Comment . PT 20.7 H 18.9 H INR 2.0 1.9 Sodium Potassium Chloride Carbon Dioxide Anion Gap BUN Creatinine Estimated GFR Random Glucose Calcium Magnesium Triglycerides Cholesterol LDL Cholesterol, Calc HDL Cholesterol Cholesterol/HDL Ratio 05/30/18 06:13 CBC w Diff WBC RBC Hgb Hct MCV MCH MCHC RDW Plt Count MPV Neut % (Auto) Lymph % (Auto) Newberry % (Auto) Eos % (Auto) Baso % (Auto) Neut # (Auto) Lymph # (Auto) [place]berry # (Auto) Eos # (Auto) Baso # (Auto) WBC Differential Diff Scan Differential Comment PT INR Sodium 140 Potassium 4.0 Chloride 106 Carbon Dioxide 25.5 Anion Gap 9 BUN 14 Creatinine 0.61 Estimated GFR Greater than 89 Random Glucose 94 Calcium 9.0 Magnesium 2.3 Triglycerides 69 Cholesterol 147 LDL Cholesterol, Calc 69 HDL Cholesterol 64.7 H Cholesterol/HDL Ratio 2.27 Preliminary micro results at discharge 05/27/18 21:40 Aerobic Blood Culture - Preliminary Blood - Peripheral No growth in 3 days Anaerobic Blood Culture - Preliminary No growth in 3 days 05/27/18 21:50 Aerobic Blood Culture - Preliminary Blood - Peripheral No growth in 3 days Anaerobic Blood Culture - Preliminary No growth in 3 days - Impressions ITS Impressions Chest X-Ray 05/27/18 20:33 CONCLUSION: No acute cardiopulmonary disease. Pulmonary Perfusion Imaging 05/27/18 20:35 CONCLUSION: 1. High probability for pulmonary embolus. Discharge Plan - Discharge Disposition Patient Disposition: 01 Discharge Home - Discharge Condition Condition: Stable - Discharge Order Discharge Orders: Discharge Order (Routine); Ordered 05/30/18 Ordered By: Nathanael Padilla - Discharge Details Anticipated Discharge Date: 05/30/18 - Physicians Team Primary Care Provider: Edilberto Darling Attending Provider: Gordo Baires Other Providers: Laureano Alfaro DO
[2018-05-30 17:12] VITALS: BP 107/60; PULSE 78; RESP 20; TEMP 96.8; O2SAT 96
== END 2018-05-30 17:30 | disposition home or self-care (01) ==
LOC: PHED 20:31 → PHEDA 22:48 → PHICU 05-28 02:03 → PH3 05-29 23:59
PROVIDERS: ADMIT Hospitalist; ATTEND Hospitalist

== ENCOUNTER 2018-06-07 11:52 | Observation (INO) ==
[2018-06-07] MEDS ORDERED: Bisacodyl 10 MG Supp RECTAL PRN (13:48)
[2018-06-07] MEDS ORDERED: Acetaminophen 325 MG Tablet PO PRN (13:48)
--- NOTE | 2018-06-07 14:10 | P.HP ---
History of Present Illness Service: Hospitalist Primary Care Physician: Edilberto Darling MD Chief Complaint: Elevated INR History of Present Illness: Ms. 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 Patient has a remote history of possible retinal melanoma in the treated with proton therapy. She was diagnosed with pulmonary embolism 3 months ago which appears to be unprovoked. She was placed on warfarin. Today during a regular checkup, her INR was found to be 6.5. She denies any burke bleeding. However she said that when she blew her nose couple of times she noticed reddish material. She denies any headache, chest pain, abdominal pain, fever or chills. She denies any changes in bowel or bladder habits. Dr. Ulloa is patient's index editor. Past medical history: Hypothyroidism, gout, rosacea, pulmonary embolism, remote history of retinal melanoma. Past surgical history: Splenectomy about 15 years ago, hysterectomy, cholecystectomy. Social history: She drinks 1 drink a day. She does not smoke or use illicit drugs. History: Family history negative for Alzheimer's, Parkinson's, cancer. - Diagnosis (1) Elevated INR (2) Pulmonary thromboembolism (3) Rosacea Review of Systems All other systems reviewed negative except as stated in HPI PMFSH - History History Provided By: Patient - Medical History Medical History: Medical History (Last Updated 06/07/18 @ 21:01 by Verna Stein RN) History of hysterectomy (Acute) Spleen absent (Acute) Rosacea (Acute) Thyroid activity decreased (Acute) DVT (deep venous thrombosis) Portal vein thrombosis - Surgical History Surgical History: Surgical History (Last Reviewed 06/07/18 @ 21:02 by Verna Stein RN) Hx of splenectomy (Acute) Hx laparoscopic cholecystectomy (Acute) - Tobacco History Second Hand Smoke Exposure: No Smoking Status: Former smoker Tobacco Type: Cigarettes - Alcohol History How Often Do You Have a Drink Containing Alcohol: Monthly or less - Substance Use History Substance History: No History of Abuse Medications and Allergies Active Medications: Active Medications Acetaminophen (Tylenol) 650 mg PO Q4H PRN PRN Reason: Headache, fever, pain 1-4 Al Hydroxide/Mg Hydroxide (Milk Of Magnesia Liq) 30 ml PO Q12H PRN PRN Reason: Mild Constipation Bisacodyl (Dulcolax Supp) 10 mg RECTAL DAILY PRN PRN Reason: SEVERE CONSITIPATION Lactulose (Lactulose Liq) 30 ml PO DAILY PRN PRN Reason: SEVERE CONSITIPATION Ondansetron HCl (Zofran Inj) 4 mg IV.PUSH Q6H PRN PRN Reason: NAUSEA OR VOMITING Phytonadione (Mephyton Liq) 5 mg PO ONCE ONE Stop: 06/07/18 13:49 Sennosides (Senokot) 17.2 mg PO Q12H PRN PRN Reason: Moderate Constipation Allergies Allergy/AdvReac Type Severity Reaction Status Date / Time diatrizoate meglumine Allergy Mild Hives Verified 06/07/18 21:01 gadobenic acid Allergy Mild Hives Verified 06/07/18 21:01 gadodiamide Allergy Mild Hives Verified 06/07/18 21:00 gadoteridol Allergy Mild Hives Verified 06/07/18 21:01 iodixanol Allergy Mild Hives Verified 06/07/18 21:01 iohexol Allergy Mild Hives Verified 06/07/18 21:00 Sulfa (Sulfonamide Allergy Mild Hives Verified 06/07/18 21:01 Antibiotics) Home Medications Medication Instructions Recorded Confirmed Type allopurinol 300 mg PO DAILY 03/20/18 06/07/18 History folic acid 1 mg PO DAILY 03/20/18 06/07/18 History levothyroxine 112 mcg PO DAILY 03/20/18 06/07/18 History Exam Narrative: GENERAL: This is a well-nourished, well-developed patient, in no apparent distress. SKIN: No rashes, ecchymoses or lesions. Warm and dry. HEAD: Atraumatic. Normocephalic. No temporal or scalp tenderness. EYES: Pupils equal round and reactive. No injection or drainage. ENT: Nose without bleeding, purulent drainage or septal hematoma. Airway patent. NECK: Trachea midline. No lymphadenopathy. Supple, nontender, no meningeal signs. CARDIOVASCULAR: Regular rate and rhythm without murmurs, gallops, or rubs. No JVD. RESPIRATORY: Clear to auscultation. Breath sounds equal bilaterally. No wheezes , rales, or rhonchi. GASTROINTESTINAL: Abdomen soft, non-tender, nondistended. No guarding. MUSCULOSKELETAL: Extremities without clubbing, cyanosis, or edema. NEUROLOGICAL: Awake and alert. Cranial nerves II through XII intact. No focal neurological deficits. Normal speech. - Constitutional chronically ill appearing Results - Labs Labs: Labs from 06/07/2018: PT 64.6 seconds, INR 6.5 Labs from 06/04/2018: WBC 12.6, hemoglobin 13.1, hematocrit 40.5, MCV 96.7, platelet count 1229K. Sodium 139 point, potassium 3.6, chloride 104, CO2 23.9, anion gap 11, BUN 14, creatinine 0.82 and estimated GFR 69. Random glucose 90. Caprini VTE Risk Assessment Caprini VTE Risk Assessment: Moderate/High Risk (score >= 2) Caprini Risk Assessment Model: Point Value = 1 Point Value = 2 Point Value = 3 Point Value = 5 Age 41-60 Minor surgery BMI > 25 kg/m2 Swollen legs Varicose veins or History of unexplained or recurrent spontaneous Oral contraceptives or hormone replacement Sepsis (< 1 month) Serious lung disease, including pneumonia (< 1 month) Abnormal pulmonary function Acute myocardial infarction Congestive heart failure (< 1 month) History of inflammatory bowel disease Medical patient at bed rest Age 61-74 Arthroscopic surgery Major open surgery (> 45 min) Laparoscopic surgery (> 45 min) Malignancy Confined to bed (> 72 hours) Immobilizing plaster cast Central venous access Age >= 75 History of VTE Family history of VTE Factor V Leiden Prothrombin [id number] Lupus anticoagulant Anticardiolipin antibodies Elevated serum homocysteine Heparin-induced thrombocytopenia Other congenital or acquired thrombophilia Stroke (< 1 month) Elective arthroplasty Hip, pelvis, or leg fracture Acute spinal cord injury (< 1 month) Prophylaxis Regimen: Total Risk Factor Score Risk Level Prophylaxis Regimen 0-1 Low Early ambulation 2 Moderate Order ONE of the following: *Sequential Compression Device (SCD) *Heparin 5000 units SQ BID 3-4 Higher Order ONE of the following medications: *Heparin 5000 units SQ TID *Enoxaparin/Lovenox 40 mg SQ daily (WT < 150 kg, CrCl > 30 mL/min) *Enoxaparin/Lovenox 30 mg SQ daily (WT < 150 kg, CrCl > 10-29 mL/min) *Enoxaparin/Lovenox 30 mg SQ BID (WT < 150 kg, CrCl > 30 mL/min) AND/OR *Sequential Compression Device (SCD) 5 or more Highest Order ONE of the following medications: *Heparin 5000 units SQ TID (Preferred with Epidurals) *Enoxaparin/Lovenox 40 mg SQ daily (WT < 150 kg, CrCl > 30 mL/min) *Enoxaparin/Lovenox 30 mg SQ daily (WT < 150 kg, CrCl > 10-29 mL/min) *Enoxaparin/Lovenox 30 mg SQ BID (WT < 150 kg, CrCl > 30 mL/min) AND *Sequential Compression Device (SCD) Assessment and Plan - Assessment (1) Elevated INR Code(s): R79.1 - Abnormal coagulation profile Status: Acute (2) Pulmonary thromboembolism Code(s): I26.99 - Other pulmonary embolism without acute cor pulmonale Status : Chronic (3) Rosacea Code(s): L71.9 - Rosacea, unspecified Status: Chronic - Plan Ms. Rodriguez is a pleasant 73-year-old female with a history of pulmonary embolism, rosacea, hypothyroidism who was directly admitted to the hospital due to elevated INR. Patient does not have any symptoms of burke bleeding. However she does complain of blood-tinged material when she blows her nose. History of pulmonary embolism 3 months ago Atrial fibrillation, paroxysmal Elevated INR due to warfarin -INR 6.5 on 06/07/2018. Will give her vitamin K p.o. 5 mg once. -Check INR in the morning. If below 2.0, we can initiate apixaban 5 mg twice daily. Thrombocytosis -Patient's platelet count on 06/04/2018 was 1229K. -Dr. Ulloa is following patient from hematological standpoint. History of rosacea Hypothyroidism History of gout -We will continue her home medications including levothyroxine, allopurinol, folic acid, doxycycline. -Patient takes doxycycline 50 mg 1 day and 25 mg the next day. Full code. INR 6.5.
[2018-06-07] MEDS ORDERED: Phytonadione 5 MG/SWFI 5 ML Oral Syringe PO ONE (16:00)
[2018-06-07 23:01] VITALS: RESP 16
[2018-06-08 08:05] LABS: INR 1.9 Ratio; Prothrombin Time 19.4 sec (9.8-11.6)
--- NOTE | 2018-06-08 10:18 | P.PN ---
Subjective Interval history: Follow-up for elevated INR due to warfarin. Patient is currently doing well. No chest pain, shortness of breath, fever or chills. No episodes of any bleeding. Physical Exam Vital signs: Vital Signs 06/07/18 12:15 06/07/18 16:00 06/07/18 18:00 Temperature 98.2 F Pulse Rate 66 Respiratory Rate 18 Blood Pressure 115/80 125/74 Pulse Oximetry 98 98 06/07/18 20:00 06/08/18 00:00 06/08/18 03:00 Temperature 98.2 F 98.3 F Pulse Rate 51 L 52 L 50 L Respiratory Rate 16 16 Blood Pressure 117/66 123/69 Pulse Oximetry 100 100 06/08/18 03:33 Temperature 98 F Pulse Rate 50 L Respiratory Rate 16 Blood Pressure 111/64 Pulse Oximetry 97 Intake & Output 06/07/18 06/08/18 06/08/18 18:59 06:59 18:59 Intake Total 240 / 240 Balance 240 / 240 Weight 43.8 kg 43.5 kg Intake: Oral 240 / 240 Other: # Voids 2 Date of Last Bowel Movement 06/07/18 06/07/18 Weight On Admission 43.8 kg Narrative: GENERAL: Alert, oriented 3, NAD. SKIN: Warm and dry. HEAD: Normocephalic. EYES: No scleral icterus. No injection or drainage. NECK: Supple, trachea midline. No JVD or lymphadenopathy. CARDIOVASCULAR: Regular rate and rhythm without murmurs, gallops, or rubs. RESPIRATORY: Breath sounds equal bilaterally. No accessory muscle use. GASTROINTESTINAL: Abdomen soft, non-tender, nondistended. MUSCULOSKELETAL: No cyanosis, or edema. BACK: Nontender without obvious deformity. No CVA tenderness. Results - Labs Laboratory Results - last 24 hr 06/08/18 07:02 PT 19.4 H D INR 1.9 Assessment and Plan - Assessment (1) Elevated INR Code(s): R79.1 - Abnormal coagulation profile Status: Acute (2) Pulmonary thromboembolism Code(s): I26.99 - Other pulmonary embolism without acute cor pulmonale Status : Chronic (3) Rosacea Code(s): L71.9 - Rosacea, unspecified Status: Chronic - Plan Ms. Rodriguez is a pleasant 73-year-old female with a history of pulmonary embolism, rosacea, hypothyroidism who was directly admitted to the hospital due to elevated INR. Patient does not have any symptoms of burke bleeding. However she does complain of blood-tinged material when she blows her nose. History of pulmonary embolism 3 months ago Atrial fibrillation, paroxysmal Elevated INR due to warfarin -INR 6.5 on 06/07/2018. We give her vitamin K 5 mg p.o. yesterday. Her INR today 1.9. -We will give patient apixaban 5 mg twice daily. We will watch her for 2-3 hours after first dose this morning. -If no complication noted, will discharge patient home this afternoon. Thrombocytosis -Patient's platelet count on 06/04/2018 was 1229K. -Dr. Ulloa is following patient from hematological standpoint. History of rosacea Hypothyroidism History of gout -We will continue her home medications including levothyroxine, allopurinol, folic acid, doxycycline. -Patient takes doxycycline 50 mg 1 day and 25 mg the next day. Full code. INR 1.9, will transition to Apixaban this morning. Discharge patient to home Condition on discharge: Improved Regular Diet as tolerated Ad Phyllis activity Rx written: Discontinue warfarin Start apixaban 5 mg twice daily. Follow-up with primary care physician as needed and hematology oncology within 1 -2 weeks.
[2018-06-08 12:37] VITALS: BP 141/79; PULSE 57; TEMP 97.4; O2SAT 97
== END 2018-06-08 13:45 | disposition home or self-care (01) ==
LOC: HCIN
PROVIDERS: ADMIT Hospitalist; ATTEND Hospitalist